=== PATIENT | female | born 1935 | race Caucasian/White ===

== ENCOUNTER 2018-07-14 23:22 | Observation (INO) | payer MEDICARE ==
[~2018-07-14] VITALS: Ht 165.1 cm; Wt 96.4 kg
[~2018-07-14 23:22] MED LIST: AMLODIPINE BESIL1 GM PO; ATENOLOL100 MG PO; LEVOTHYROXINE50 MCG PO; METFORMIN HCL500 MG PO; PRILOSEC20 MG PO; ULTRAM50 MG PO
[2018-07-14] MEDS ORDERED: HYDROMORPHONE 2MG/ML 2 MG/ML ML IV STA (23:25)
[2018-07-14] MEDS ORDERED: ONDANSETRON HCL INJ 2 MG/ML VIAL IV STA (23:25)
--- OUTSIDE RECORDS SUMMARY | 2018-07-14 23:25 | XMS REPORT | Clinical Summary ---
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 cement, namely polymethylmethacrylate (PMMA). Minimal contrast extended beyond the anterior margins of the vertebral body through the fracture plane, with no evidence of intravasation to any vessel. Trace contrast extended into the very inferior aspect of the T12-T 13 disc space through the fracture plane along the superior endplate of T 13. Proper cement distribution in the fractured T 13 vertebral body was achieved. The cannulas were then removed. POST-PROCEDURE: All incisions were closed with Steri-Strips and pressure dressing. The patient was kept in the prone position for approximately 10 minutes. The patient was then turned supine, monitored briefly and returned to the post-procedure monitoring unit. The patient was awake and moving all extremities and at this time showed no neurologic deficit. No complications were encountered. Blood loss was noted to be minimal. IMPRESSION: 1. Successful uncomplicated fluoroscopic-guided vertebroplasty of T 13 vertebral body. Fluoroscopy time was 3.2 minutes Total fluoroscopic exposure images was12 images. Total radiation exposure was 518 mGy. [facility]-[id number] Procedure Note Hm Interface, Radiology Results Incoming - 12/09/2017 4:38 PM CDT EXAMINATION: IR VERTEBRO LUM UNI OR DANE 1. FLUOROSCOPIC-GUIDED CEMENT AUGMENTATION AND INTERNAL FIXATION OF T 13 COMPRESSION FRACTURE WITH VERTEBROPLASTY. CLINICAL HISTORY: compression fracture, T13 compresion fracture- vertebroplasty please COMPARISON: CT thoracic spine 12/07/2017, CT lumbar spine 12/07/2017 CLINICAL HISTORY: Back pain. MRI shows acute compression fracture of T 13 level. PREOPERATIVE DIAGNOSIS: Osteoporotic compression fracture of T13 vertebral body with severe back pain. POSTOPERATIVE DIAGNOSIS: Same. BLOOD LOSS: Less than 2 cc COMPLICATIONS: None CONSENT: After discussion of the radiographic findings and the compression fracture of T13 vertebral body with patient and her family, we have decided to treat the compression fracture with Percutaneous vertebroplasty for fracture reduction and internal fixation. The patient and the members of the immediate family understood the risks and benefits of the procedure. Informed consent was obtained. PROCEDURE DESCRIPTION: The patient was brought to the Fluoroscopy Suite and placed on the fluoroscopy table in prone position. The procedure was performed under general anesthesia, which was conducted with an anesthesiologist. Prophylactic intravenous antibiotic 400 mg ciprofloxacin was given. The thoracolumbar region was prepped and draped in standard sterile fashion. The imaging intensifiers were placed in both AP and lateral fluoroscopic planes. Transpedicular approach was utilized to access the T13 vertebral compression fractures bilaterally. The skin over the pedicles of T13 level were infiltrated with 2% buffered lidocaine. Deep infiltration into the periosteum of T13 was achieved. A 13 gauge entry needle was placed into the posterior aspect of the body of T13 level bilaterally via transpedicular approach. Positioning was confirmed in both AP and lateral planes simultaneously. Following satisfactory placement of the needles, the Stylet was removed under fluoroscopic imaging, internal fixation was achieved through injection of bone cement, namely polymethylmethacrylate (PMMA). Minimal contrast extended beyond the anterior margins of the vertebral body through the fracture plane, with no evidence of intravasation to any vessel. Trace contrast extended into the very inferior aspect of the T12-T 13 disc space through the fracture plane along the superior endplate of T 13. Proper cement distribution in the fractured T 13 vertebral body was achieved. The cannulas were then removed. POST-PROCEDURE: All incisions were closed with Steri-Strips and pressure dressing. The patient was kept in the prone position for approximately 10 minutes. The patient was then turned supine, monitored briefly and returned to the post-procedure monitoring unit. The patient was awake and moving all extremities and at this time showed no neurologic deficit. No complications were encountered. Blood loss was noted to be minimal. IMPRESSION: 1. Successful uncomplicated fluoroscopic-guided vertebroplasty of T 13 vertebral body. Fluoroscopy time was 3.2 minutes Total fluoroscopic exposure images was12 images. Total radiation exposure was 518 mGy. [facility]-[id number] Performing Organization Address [facility] Phone Number [place] [phone] [place] [phone] * Total iron binding capacity (12/09/2017 4:06 AM CDT) Iron level 32 (L) 37 - 145 ug/dL [facility] DEPARTMENT OF PATHOLOGY AND GENOMIC MEDICINE Iron binding capacity 232 200 - 400 ug/dL [facility] DEPARTMENT OF PATHOLOGY AND GENOMIC MEDICINE % Saturation 13.8 (L) 15.0 - 38.0 % [facility] DEPARTMENT OF PATHOLOGY AND GENOMIC MEDICINE Specimen Plasma specimen Performing Organization Address [facility] Phone Number [address] [address] PATHOLOGY AND GENOMIC MEDICINE * Prothrombin time with INR (12/09/2017 4:06 AM CDT) Only the most recent of 2 results within the time period is included. Prothrombin time 13.9 12.0 - 15.0 sec [facility] DEPARTMENT OF PATHOLOGY AND GENOMIC MEDICINE INR 1.1 [facility] DEPARTMENT OF Comment: PATHOLOGY AND The International Normalized GENOMIC MEDICINE Ratio (INR) is a therapeutic monitoring tool for patients who are stable on oral anticoagulant therapy. An INR of 2.0-3.0 is suggested for deep vein thrombosis/pulmonary embolism. Specimen Blood Performing Organization Address [facility]/Zipcode Phone Number [place] [address] PATHOLOGY AND GENOMIC MEDICINE * Transferrin level (12/09/2017 4:06 AM CDT) Transferrin 206 200 - 360 mg/dL [facility] DEPARTMENT OF PATHOLOGY AND GENOMIC MEDICINE Specimen Plasma specimen Performing Organization Address City/[facility]/Zipcode Phone Number [facility] [place] [address] PATHOLOGY AND GENOMIC MEDICINE * Ferritin level (12/09/2017 4:06 AM CDT) Ferritin level 121 13 - 150 ng/mL [facility] DEPARTMENT OF PATHOLOGY AND GENOMIC MEDICINE Specimen Plasma specimen Performing Organization Address [facility] Phone Number [facility] [place] [address] PATHOLOGY AND GENOMIC MEDICINE * Type and screen (12/09/2017 4:00 AM CDT) ABO grouping O [facility] DEPARTMENT OF PATHOLOGY AND GENOMIC MEDICINE Rh type POS [facility] DEPARTMENT OF PATHOLOGY AND GENOMIC MEDICINE Antibody screen (gel) NEG [facility] DEPARTMENT OF PATHOLOGY AND GENOMIC MEDICINE Specimen Blood Performing Organization Address [facility] Phone Number [facility] [place] [address] PATHOLOGY AND GENOMIC MEDICINE * XR Abdomen 1 Vw Portable (12/08/2017 12:08 PM CDT) Narrative Performed At Examination:XR ABDOMEN 1 VW PORTABLE [facility] Clinical history:"ABDOMINAL PAIN, constipation" Comparison: None IMPRESSION:Only the left lateral abdomen is imaged on the left lateral decubitus views and only the right mid abdomen is imaged on the right lateral decubitus view. Bowel gas pattern is nonspecific. There is no evidence of acute disease within the imaged portions of both lung bases. The imaged bones appear to demonstrate hardware. Surgical clips are seen in the right upper quadrant. [facility]-[id number] Procedure Note Interface, Radiology Results Incoming - 12/08/2017 12:34 PM CDT Examination: XR ABDOMEN 1 VW PORTABLE Clinical history: "ABDOMINAL PAIN, constipation" Comparison: None IMPRESSION: Only the left lateral abdomen is imaged on the left lateral decubitus views and only the right mid abdomen is imaged on the right lateral decubitus view. Bowel gas pattern is nonspecific. There is no evidence of acute disease within the imaged portions of both lung bases. The imaged bones appear to demonstrate hardware. Surgical clips are seen in the right upper quadrant. [id number] Performing Organization Address [facility]/Zipcode Phone Number [facility] [address] [place] [address] * Vitamin D 25 hydroxy level (12/08/2017 4:00 AM CDT) Vitamin D, 25-hydroxy 21.7 (L) 30.0 - 150.0 ng/mL [facility] DEPARTMENT OF Comment: PATHOLOGY AND This assay reports the sum of GENOMIC MEDICINE 25-hydroxy vitamin D3 and 25-hydroxy vitamin D2. Reference range: 0-17 years: Deficiency: less than 20ng/mL Optimum level: greater than or equal to 20 ng/mL. 18 years and older: Deficiency: less than 20ng/mL Insufficiency: 20-29 ng/mL Optimum Level: 30-80 ng/mL The assay reportable range is 3.4155.9 ng/mL. Levels higher than 150 ng/mL may be associated with toxicity. If toxicity is clinically suspected and the reported result is >155.9 ng/mL,contact lab for alternative methods to obtain a definitivelevel. If separate quantitation of 25-hydroxy vitamin D3 and 25-hydroxy vitamin D2 is needed, please contact lab for alternative methods. Specimen Blood Performing Organization Address [facility] Phone Number [facility] DEPARTMENT OF [address] [place] [address] PATHOLOGY AND GENOMIC MEDICINE * CT Thoracic Spine Wo Contrast (12/07/2017 6:55 PM CDT) Narrative Performed At EXAMINATION: CT THORACIC SPINE WO CONTRAST [facility] CLINICAL HISTORY: point tenderness along T-spine COMPARISON:Outside CT lumbar spine 12/06/2017. TECHNIQUE: Non contrast axial images of the thoracic spine were obtained with coronal and sagittal reconstructed algorithms.CT imaging was performed with iterative reconstruction technique and/or automated exposure control to reduce radiation dose. FINDINGS: Of note, there are 13 rib-bearing vertebrae. Stable mild acute compression fracture of the lowest rib-bearing vertebral body with approximately 25% vertebral height loss and minimal retropulsion of the superior endplate without significant spinal canal narrowing. No suspicious osseous lesion identified. No additional fracture identified. Remaining for vertebral heights appear maintained. Minimal anterior osteophyte from aeration of multiple thoracic levels. Diffuse osteopenia. Patent spinal canal and neural foramina at all thoracic levels. Arteriosclerosis of the thoracic and visualized abdominal aorta. IMPRESSION: Of note, there are 13 rib-bearing vertebrae. Stable mild acute compression fracture of the lowest rib-bearing vertebral body with approximately 25% vertebral height loss and minimal retropulsion of the superior endplate without significant spinal canal narrowing. [facility]-[id number] Procedure Note [facility], Radiology Results Incoming - 12/07/2017 7:16 PM CDT EXAMINATION: CT THORACIC SPINE WO CONTRAST CLINICAL HISTORY: point tenderness along T-spine COMPARISON: Outside CT lumbar spine 12/06/2017. TECHNIQUE: Non contrast axial images of the thoracic spine were obtained with coronal and sagittal reconstructed algorithms. CT imaging was performed with iterative reconstruction technique and/or automated exposure control to reduce radiation dose. FINDINGS: Of note, there are 13 rib-bearing vertebrae. Stable mild acute compression fracture of the lowest rib-bearing vertebral body with approximately 25% vertebral height loss and minimal retropulsion of the superior endplate without significant spinal canal narrowing. No suspicious osseous lesion identified. No additional fracture identified. Remaining for vertebral heights appear maintained. Minimal anterior osteophyte from aeration of multiple thoracic levels. Diffuse osteopenia. Patent spinal canal and neural foramina at all thoracic levels. Arteriosclerosis of the thoracic and visualized abdominal aorta. IMPRESSION: Of note, there are 13 rib-bearing vertebrae. Stable mild acute compression fracture of the lowest rib-bearing vertebral body with approximately 25% vertebral height loss and minimal retropulsion of the superior endplate without significant spinal canal narrowing. [facility]-[id number] Performing Organization Address City/State/Zipcode Phone Number [facility] [address] [place] [address] * POC glucose (12/07/2017 7:58 AM CDT) POC glucose 124 (H) 65 - 99 mg/dL [facility] DEPARTMENT OF Comment: PATHOLOGY AND No Action Needed GENOMIC MEDICINE [facility] Notified RN Meter ID: [id number] Reject Opener And Filler: Mik Le Performing Organization Address City/State/[place] [address] PATHOLOGY AND GENOMIC MEDICINE * ECG 12 lead (12/07/2017 2:17 AM CDT) Ventricular rate 66 [facility] MUSE Atrial rate 66 [facility] MUSE PA interval 188 [facility] QRSD interval 82 [facility] QT interval 436 [facility] QTC interval 457 [facility] MUSE P axis 1 60 [facility] MUSE QRS axis 1 30 [facility] MUSE T wave axis 57 [facility] MUSE EKG impression Normal sinus rhythm-Possible [facility] MUSE Lateral infarct , age undetermined-Abnormal ECG-No previous ECGs available- Performing Organization Address [facility] Hospitalc[place] [address] * Troponin (12/07/2017 12:49 AM CDT) Troponin <0.30 0.00 - 0.30 ng/mL [facility] DEPARTMENT OF Comment: PATHOLOGY AND 0.30 - 1.49 GENOMIC MEDICINE ng/mlMay indicate increased risk of acute coronary syndrome. >=1.5 ng/ml Consistent with acute myocardial infarction. The diagnostic value of a single normal or non-diagnostic result is questionable.Serial samples at 2-6 hour intervals are required to rule out acute myocardial injury. Specimen Plasma specimen Performing Organization Address [facility] [place] [address] PATHOLOGY AND GENOMIC MEDICINE * Partial thromboplastin time, activated (12/07/2017 12:49 AM CDT) PTT 32.4 23.0 - 36.0 sec [facility] DEPARTMENT OF Comment: PATHOLOGY AND PTT therapeutic range for [facility] MEDICINE unfractionated heparin is 61.0-112.0 seconds which corresponds to Anti-Xa 0.3-0.7 U/ml. Specimen Blood Performing Organization Address [facility] [place] [address] PATHOLOGY AND GENOMIC MEDICINE * Thyroid stimulating hormone (12/07/2017 12:49 AM CDT) TSH 4.18 0.27 - 4.20 uIU/mL [facility] DEPARTMENT OF PATHOLOGY AND GENOMIC MEDICINE Specimen Plasma specimen Performing Organization Address [facility] Phone Number [facility] DEPARTMENT OF [address] [place] [address] PATHOLOGY AND GENOMIC MEDICINE * T4, free (12/07/2017 12:49 AM CDT) T4, free 1.4 0.9 - 1.7 ng/dL [facility] DEPARTMENT OF PATHOLOGY AND GENOMIC MEDICINE Specimen Plasma specimen Performing Organization Address City/[facility] [place] [address] PATHOLOGY AND GENOMIC MEDICINE * B natriuretic peptide (12/07/2017 12:49 AM CDT) BNP 52 0 - 100 pg/mL [facility] DEPARTMENT OF PATHOLOGY AND GENOMIC MEDICINE Specimen Blood Performing Organization Address [facility] [place] [address] PATHOLOGY AND GENOMIC MEDICINE * Lipid panel (12/07/2017 12:49 AM CDT) Cholesterol 190 <200 mg/dL [facility] DEPARTMENT OF PATHOLOGY AND GENOMIC MEDICINE Triglycerides 257 (H) <150 mg/dL [facility] DEPARTMENT OF PATHOLOGY AND GENOMIC MEDICINE HDL cholesterol 39 (L) >40 mg/dL [facility] DEPARTMENT OF PATHOLOGY AND GENOMIC MEDICINE LDL cholesterol 119 (H)Comment: Result <100 mg/dL [facility] DEPARTMENT OF obtained by direct LDL PATHOLOGY AND measurement GENOMIC MEDICINE Lipid panel SeeBelow [facility] DEPARTMENT OF interpretation Comment: PATHOLOGY AND Total Cholesterol GENOMIC MEDICINE (mg/dL) <200 Desirable 200-239Borderline -high >=240High Triglycerides (mg/dL) <150 Normal 150-199Borderline -high 200-499High >=500Very high HDL Cholesterol (mg/dL) <40Low (male) <40Low (female) LDL Cholesterol (mg/dL) <100 Optimal 100-129Near or above optimal 130-159Borderline -high 160-189High >=190Very high Risk Catergories that modify LDL goals. Risk Catergories LDL goal (mg/dL) CHD and CHD risk equivalent<100 (10-year risk >20%) Multiple (2+) risk factors <130 (10-year risk=<20%) 0-1 risk factors <160 (<10-year risk) Defining levels of lipids in metabolic syndrome Triglycerides >=150 mg/dL HDL Cholesterol Men <40 mg/dL Women <40 mg/dL Non-HDL cholesterol is a second target for therapy in persons with high triglycerides (>=200 mg/dL) Specimen Plasma specimen Performing Organization Address City/[facility]/Zipcode Phone Number [facility] DEPARTMENT OF [address] [place] [address] PATHOLOGY AND GENOMIC MEDICINE * CT Spine External Study (12/06/2017 1:42 PM CDT) Narrative Performed At This exam was not acquired at a [facility] facility and has not been [facility] interpreted by a [facility] Provider.The exam was imported into our imaging system for comparisons purposes. Performing Organization Address [facility] Phone Number [facility] [address] [place] [address] * XR Hip 2-3 View Left (12/02/2017 2:03 PM CDT) Narrative Performed At EXAMINATION:XR HIP 2-3 VIEWS LEFT [facility] CLINICAL HISTORY:pain post fall COMPARISON:None. TECHNIQUE: 3 views were performed consisting of an AP pelvis, AP and frog's view of the LEFT hip. FINDINGS: No gross acute fracturing, dislocation, bone destruction, or periosteal reaction is noted. No gross soft tissue swelling is noted.Minimal degenerative changes are present with some mild joint space narrowing. If the patient's symptoms persist or deteriorate, a follow-up radiograph in 10 days time is recommended, if clinically indicated. IMPRESSION: 1. There is no acute fracture or subluxation. 2. There are no osseous lesions present. 3. There are mild degenerative changes present consistent with osteoarthritis. [id number] Procedure Note Interface, Radiology Results Incoming - 12/02/2017 2:09 PM CDT EXAMINATION: XR HIP 2-3 VIEWS LEFT CLINICAL HISTORY: pain post fall COMPARISON: None. TECHNIQUE: 3 views were performed consisting of an AP pelvis, AP and frog's view of the LEFT hip. FINDINGS: No gross acute fracturing, dislocation, bone destruction, or periosteal reaction is noted. No gross soft tissue swelling is noted. Minimal degenerative changes are present with some mild joint space narrowing. If the patient's symptoms persist or deteriorate, a follow-up radiograph in 10 days time is recommended, if clinically indicated. IMPRESSION: 1. There is no acute fracture or subluxation. 2. There are no osseous lesions present. 3. There are mild degenerative changes present consistent with osteoarthritis. [id number] Performing Organization Address [facility] Phone Number [facility] [address] [place] [address] * XR Ribs W Pa Chest Left (12/02/2017 2:03 PM CDT) Narrative Performed At EXAMINATION:XR RIBS W PA CHEST LEFT HM [facility] CLINICAL HISTORY:paintrauma COMPARISON:None. IMPRESSION: 1.The bones are osteopenic. No rib fracture or focal osseous lesion is seen. Lumbar hardware is present. [id number] Procedure Note Hm Interface, Radiology Results Incoming - 12/02/2017 2:15 PM CDT EXAMINATION: XR RIBS W PA CHEST LEFT CLINICAL HISTORY: pain trauma COMPARISON: None. IMPRESSION: 1. The bones are osteopenic. No rib fracture or focal osseous lesion is seen. Lumbar hardware is present. [id number] Performing Organization Address City/[facility] Phone Number [facility] [address] [place] [address] after 07/13/2017 Insurance Payer Benefit Subscriber ID Type Phone Address Plan / Group [facility] [employer] xxxxxxxxxxx [facility] ([place]) [place] [address] Advance Directives Patient has advance care planning documents on file. For more information, darby lopes contact: [employer] [address] [place] [address]
[2018-07-14 23:46] LABS: BASOPHILS # (AUTO) 0.1 (0.0-0.1); BASOPHILS % 0.5 % (0.0-1.0); EOSINOPHILS # (AUTO) 0.4 (0.0-0.4); EOSINOPHILS % 2.9 % (0.0-6.0); HEMATOCRIT 41.3 % (34.2-44.1); HEMOGLOBIN 14.2 g/dL (12.0-16.0); LYMPHOCYTES # (AUTO) 3.4 (1.0-3.2); LYMPHOCYTES % 25.5 % (18.0-39.1); MEAN CORPUSCULAR HEMOGLOBIN 29.8 pg (28-32); MEAN CORPUSCULAR HGB CONC 34.4 g/dL (31-35); MEAN CORPUSCULAR VOLUME 86.6 fL (81-99); MONOCYTES # (AUTO) 1.2 (0.2-0.8); MONOCYTES % 8.9 % (4.4-11.3); NEUTROPHILS # (AUTO) 8.1 (2.1-6.9); NEUTROPHILS % 61.4 % (38.7-80.0); PLATELET COUNT 244 x10e3/uL (140-360); RED BLOOD COUNT 4.77 x10e6/uL (3.6-5.1); RED CELL DISTRIBUTION WIDTH 13.3 % (11.7-14.4)
[2018-07-14 23:54] LABS: CLARITY,URINE SL CLOUDY (CLEAR); COLOR,URINE YELLOW (YELLOW)
[2018-07-14 23:55] LABS: BILIRUBIN,URINE NEGATIVE (NEGATIVE); KETONES,URINE TRACE (NEGATIVE); LEUKOCYTE ESTERASE ,URINE TRACE (NEGATIVE); NITRITE,URINE NEGATIVE (NEGATIVE); PROTEIN,URINE DIPSTICK TRACE (NEGATIVE); URINE UROBILINOGEN 0.2 mg/dL (0.2 - 1)
[2018-07-15] VITALS (8 sets, daily range): BP systolic 112–150; BP diastolic 55–66
[2018-07-15 00:08] LABS: ALANINE AMINOTRANSFERASE 30 IU/L (0-55); ALBUMIN 4.1 g/dL (3.5-5.0); ALKALINE PHOSPHATASE 84 IU/L (40-150); ANION GAP 19.1 mmol/L (8-16); BLOOD UREA NITROGEN 19 mg/dL (7-26); BUN/CREATININE RATIO 23 (6-25); CALCIUM 9.8 mg/dL (8.4-10.2); CARBON DIOXIDE 20 mmol/L (22-29); CHLORIDE 103 mmol/L (98-107); CREATININE, SERUM 0.83 mg/dL (0.57-1.11); EST GLOMERULAR FILTRATION RATE > 60 ML/MIN (60-); GLUCOSE 164 mg/dL (74-118); POTASSIUM 4.1 mmol/L (3.5-5.1); SODIUM 138 mmol/L (136-145)
[2018-07-15 00:14] LABS: BACTERIA,URINE RARE /HPF; TRANSITIONAL EPI CELLS,URINE FEW
[2018-07-15 00:15] LABS: EPITHELIAL CELLS,URINE MODERATE /LPF
--- NOTE | 2018-07-15 00:38 | Diagnostic Imaging Report ---
EXAM: CT ABDOMEN/PELVIS WO DATE: 07/14/2018 11:25 PM INDICATION: Abdominal pain, stone protocol, left flank COMPARISON: None TECHNIQUE: The abdomen and pelvis were scanned using a multidetector helical scanner. Coronal and sagittal reformations were obtained. CT low dose techniques were utilized, as applicable. IV Contrast: 0 ml Isovue 300/370 FINDINGS: Lack of IV contrast decreases sensitivity in evaluating abdominal and pelvic organs. LOWER THORAX: No consolidations LIVER/BILIARY: 2.9 cm left liver fluid attenuation lesion most compatible with a cyst. Mild biliary ductal dilation status post cholecystectomy. GALLBLADDER: Surgically absent SPLEEN: Unremarkable PANCREAS: No masses or ductal dilation ADRENALS: No nodules KIDNEYS: Bilateral nephrolithiasis, the largest measuring 6 mm of the right lower pole and 4 to 5 mm of the left lower pole. Mild left hydroureteronephrosis related to a 6 mm stone at the left UVJ versus two adjacent 3 mm stones. GI TRACT: No wall thickening or evidence of obstruction. Normal appendix. Diverticulosis. VESSELS: Mild atherosclerotic calcification PERITONEUM/RETROPERITONEUM: No free air or fluid LYMPH NODES: No lymphadenopathy REPRODUCTIVE ORGANS/BLADDER: Bladder is decompressed. Hysterectomy. BONES: Postsurgical changes status post kyphoplasty at T12 compression fracture, L3-4 posterior fusion and decompression with grade 1 anterolisthesis of L3 over L4. IMPRESSION: Mild left hydroureteronephrosis related to a 6 mm left UVJ stone versus two adjacent 3 mm stones. Bilateral nonobstructing renal calculi. Signed by: Dr Vanessa Summers MD on 07/15/2018 12:35 AM
[2018-07-15] MEDS ORDERED: HYDROMORPHONE 1MG/1ML INJ IV STA (00:41)
[2018-07-15] MEDS ORDERED: FLOMAX0.4 MG PO (00:48)
[2018-07-15] MEDS ORDERED: GABAPENTIN100 MG PO (00:48)
[2018-07-15] MEDS ORDERED: HYDROMORPHONE 2MG/ML 2 MG/ML ML ONE (00:52)
[2018-07-15] MEDS ORDERED: HYDRALAZINE HCL 20 MG/ML VIAL IV PRN (01:45)
[2018-07-15] MEDS ORDERED: HYDROMORPHONE 1MG/1ML INJ IV PRN (01:45)
[2018-07-15] MEDS ORDERED: SODIUM CHLORIDE 0.9% 50ML 50 ML ONE (01:52)
[2018-07-15] MEDS: SODIUM CHLORIDE 0.9% 1000ML 1,000 ML IV SCH ×3 (02:04→16:14)
[2018-07-15] MEDS: CEFTRIAXONE SOD 1 GM VIAL IV SCH (02:04)
[2018-07-15] MEDS ORDERED: KETOROLAC TROMETHAMINE 30 MG/ML VIAL IV ONE (02:15)
--- OUTSIDE RECORDS SUMMARY | 2018-07-15 02:32 | XMS REPORT ---
Author Author [facility] Address Unknown Phone Unavailable Care Team Providers Care Canal Tender Name Role Phone Franchesca MATTHEW Unavailable Unavailable Problems This patient has no known problems. Allergies, Adverse Reactions, Alerts This patient has no known allergies or adverse reactions. Medications This patient has no known medications. Results Test Description Test Time Test Comments Text Results Atomic Results Result Comments CT ABDOMEN/PELVIS WO 2018-07-15 00:25:00 [place] [address] Patient Name: OSCAR PARIS MR #: [id number] : 1935 Age/Sex: 83/F Req #: [id number] Adm Physician: Ordered by: EMILIANO MATTHEW MD Report #: [id number] Location: ER Room/Bed: Procedure: [id number] CT/CT ABDOMEN/PELVIS WO Exam Date: 07/14/18 Exam Time: 2353 REPORT STATUS: Signed EXAM: CT ABDOMEN/PELVIS WO DATE: 07/14/2018 11:25 PM INDICATION: Abdominal pain, stone protocol, left flank COMPARISON: None TECHNIQUE: The abdomen and pelvis were scanned using a multidetector helical scanner. Coronal and sagittal reformations were obtained. CT low dose techniques were utilized, as applicable. IV Contrast: 0 ml Isovue 300/370 FINDINGS: Lack of IV contrast decreases sensitivity in evaluating abdominal and pelvic organs. LOWER THORAX: No consolidations LIVER/BILIARY: 2.9 cm left liver fluid attenuation lesion most compatible with a cyst. Mild biliary ductal dilation status post cholecystectomy. GALLBLADDER: Surgically absent SPLEEN: Unremarkable PANCREAS: No masses or ductal dilation ADRENALS: No nodules KIDNEYS: Bilateral nephrolithiasis, the largest measuring 6 mm of the right lower pole and 4 to 5 mm of the left lower pole. Mild left hydroureteronephrosis related to a 6 mm stone at the left UVJ versus two adjacent 3 mm stones. GI TRACT: No wall thickening or e vidence of obstruction. Normal appendix. Diverticulosis. VESSELS: Mild atherosclerotic calcification PERITONEUM/RETROPERITONEUM: No free air or fluid LYMPH NODES: No lymphadenopathy REPRODUCTIVE ORGANS/BLADDER: Bladder is decompressed. Hysterectomy. BONES: Postsurgical changes status post kyphoplasty at T12 compression fracture, L3-4 posterior fusion and decompression with grade 1 anterolisthesis of L3 over L4. IMPRESSION: Mild left hydroureteronephrosis related to a 6 mm left UVJ stone versus two adjacent 3 mm stones. Bilateral nonobstructing renal calculi. Signed by: Dr Prince Summers MD on 07/15/2018 12:35 AM Dictated By: PRINCE SUMMERS MD Transcribed By: DEANNE on 07/15/1834 COPY TO: EMILIANO MATTHEW MD
--- OUTSIDE RECORDS SUMMARY | 2018-07-15 02:32 | XMS REPORT | Clinical Summary ---
Author Author [facility] Organization [facility] Address Unknown Phone Unavailable Care Team Providers Care Developer Prover Upholstering Name Role Phone Rony Gonzalez MD PCP [...] Encounters Care Team Description Date Type Specialty aMc Lockett MD Abdominal pain, acute, generalized (Primary [...] initial encounter 12/02/2017 Emergency Emergency Medicine after 07/14/2017 Social History Date Tobacco Use Types Packs/Day [...] Taken Vital Sign Reading 07/07/2018 2:57 AM OCEAN EXPORT COORDINATOR Blood Pressure 146/63 07/07/2018 2:57 AM OCEAN EXPORT COORDINATOR Pulse 89 07/06/2018 10:46 PM OCEAN EXPORT COORDINATOR Temperature 36.9 C (98.4 F) 07/07/2018 2:57 AM OCEAN EXPORT COORDINATOR Respiratory Rate 19 07/07/2018 2:57 AM OCEAN EXPORT COORDINATOR Oxygen Saturation 98% - Inhaled Oxygen - Concentration 07/07/2018 2:57 AM OCEAN EXPORT COORDINATOR Weight 91.6 kg (201 lb 15.1 oz) 07/07/2018 2:57 AM OCEAN EXPORT COORDINATOR Height 165.1 cm (5' 5") 07/07/2018 2:57 AM OCEAN EXPORT COORDINATOR Body Mass Index 33.6 Plan of Treatment [...] Lot Implanted Type Area Manufactur er 09/08/2019 [id number] / / [id number] Kit Cmnt Spinal Hiviscocty 11ml Spinal N/A: N/A DEPUY [employer] - [id number] Implants SPINE Implanted: 12/10/2017 (Quantity not on file) Procedures Comments Procedure Name Priority Date/Time Associated Diagnosis URINALYSIS SCREEN AND STAT 07/07/2018 MICROSCOPY, WITH REFLEX 2:18 AM OCEAN EXPORT COORDINATOR TO CULTURE CT ABDOMEN PELVIS W STAT 07/07/2018 CONTRAST 2:08 AM OCEAN EXPORT COORDINATOR ESTIMATED GFR STAT 07/06/2018 11:46 PM OCEAN EXPORT COORDINATOR LIPASE LEVEL STAT 07/06/2018 11:46 PM OCEAN EXPORT COORDINATOR COMPREHENSIVE METABOLIC STAT 07/06/2018 PANEL 11:46 PM OCEAN EXPORT COORDINATOR HC COMPLETE BLD COUNT STAT 07/06/2018 W/AUTO DIFF 11:46 PM OCEAN EXPORT COORDINATOR GRAM STAIN STAT 07/06/2018 10:48 PM OCEAN EXPORT COORDINATOR URINE CULTURE STAT 07/06/2018 10:48 PM OCEAN EXPORT COORDINATOR ZZESTIMATED GFR Routine 12/10/2017 4:20 AM CDT [...] STAT 12/02/2017 PANEL 12:45 PM CDT after 07/14/2017 Results * Urinalysis screen and microscopy, with reflex to culture (07/07/2018 2:18 AM OCEAN EXPORT COORDINATOR) Specimen site Clean catch [facility] Color, UA Yellow [facility] Appearance, UA Clear [facility] Specific gravity, UA 1.035 1.001 - 1.035 [facility] pH, UA 5.0 5.0 - 8.5 [facility] Protein, UA 2+ (A) Negative [facility] Glucose, UA Negative Negative [facility] Ketones, UA Trace (A) Negative [facility] Bilirubin, UA Negative Negative [facility] Blood, UA Large (A) Negative [facility] Nitrite, UA Negative Negative [facility] Urobilinogen, UA <2.0 <2.0 [facility] Leukocyte esterase, UA Small (A) Negative [facility] Epithelial cells, UA 4 /HPF [facility] WBC, UA 2 0 - 4 /HPF [facility] RBC, UA 54 (H) 0 - 5 /HPF [facility] Bacteria, UA None seen None seen [facility] Yeast, UA None seen [facility] Yeast with pseudohyphae, None seen [facility] Specimen Urine Performing Organization Address City/State/Zipcode Phone Number [facility] DEPARTMENT OF [address] [place] [address] PATHOLOGY AND GENOMIC MEDICINE [facility] [address] [place] [address] [address] * CT Abdomen Pelvis W Contrast (07/07/2018 2:08 AM OCEAN EXPORT COORDINATOR) Narrative Performed At CT ABDOMEN PELVIS W [...] edema, and absence of a delayed nephrogram. [facility]-[id number] Procedure Note [facility], Radiology Results Incoming - 07/07/2018 2:18 AM OCEAN EXPORT COORDINATOR CT ABDOMEN PELVIS W CONTRAST CLINICAL INDICATION: [...] edema, and absence of a delayed nephrogram. [facility]-[id number] Performing Organization Address City/State/Zipcode Phone Number [facility] [address] [place] [address] * Estimated GFR (07/06/2018 11:46 PM OCEAN EXPORT COORDINATOR) Estimated GFR 55 (A) mL/min/1.73 m2 [facility] Comment: HOSPITAL CatergoryUnitsInte rpretation G1 >=90 Normal or high G2 60-89Mildly decreased P3d31-00 Mildly to moderately decreased Y5t14-28 Moderately to severely decreased G4 15-29Severely decreased G5 <15Kidney failure The eGFR was calculated using the Chronic Kidney Disease Epidemiology Collaboration (CKD-EPI) equation. Interpretation is based on recommendations of the National Kidney Foundation-Kidney Disease Outcomes Quality Initiative (NKF-KDOQI) published in 2014. Specimen Plasma specimen Performing Organization Address [facility] Cent[facility]ode Phone Number [facility] DEPARTMENT OF [address] [place] [address] PATHOLOGY AND GENOMIC MEDICINE [address] * CBC with platelet and differential (07/06/2018 11:46 PM OCEAN EXPORT COORDINATOR) Only the most recent of 6 results within the time period is included. WBC 14.30 (H) 4.50 - 11.00 k/uL [facility] RBC 4.57 4.20 - 5.50 m/uL [facility] HGB 13.5 12.0 - 16.0 g/dL [facility] HCT 39.3 37.0 - 47.0 % [facility] MCV 86.0 82.0 - 100.0 fL [facility] MCH 29.5 27.0 - 34.0 pg [facility] MCHC 34.4 31.0 - 37.0 g/dL [facility] RDW - SD 42.1 37.0 - 55.0 fL [facility] MPV 10.8 8.8 - 13.2 fL [facility] Platelet count 202 150 - 400 k/uL [facility] Nucleated RBC 0.00 /100 WBC [facility] Neutrophils 69.6 (H) 39.0 - 69.0 % [facility] Lymphocytes 18.8 (L) 25.0 - 45.0 % [facility] Monocytes 10.0 0.0 - 10.0 % [facility] Eosinophils 0.6 0.0 - 5.0 % [facility] Basophils 0.4 0.0 - 1.0 % [facility] Immature granulocytes 0.6Comment: "Immature 0.0 - 1.0 % [facility] granulocytes" (promyelocytes, HOSPITAL myelocytes, metamyelocytes) Specimen Blood Performing Organization Address [facility] Centercode Phone Number [facility] DEPARTMENT OF [address] [place] [address] PATHOLOGY AND GENOMIC MEDICINE [address] * Lipase level (07/06/2018 11:46 PM OCEAN EXPORT COORDINATOR) Lipase 10 (L) 13 - 60 U/L [facility] Specimen Plasma specimen Performing Organization Address City/[facility]/Zipcode Phone Number [facility] DEPARTMENT OF [address] [place] [address] PATHOLOGY AND GENOMIC MEDICINE [address] * Comprehensive metabolic panel (07/06/2018 11:46 PM OCEAN EXPORT COORDINATOR) Only the most recent of 3 results within the time period is included. Sodium 141 135 - 148 mEq/L [facility] Potassium 3.8 3.5 - 5.0 mEq/L [facility] Chloride 103 98 - 112 mEq/L [facility] CO2 21 (L) 24 - 31 mEq/L [facility] Anion gap 17@ANIO (H) 7 - 15 mEq/L [facility] BUN 13 8 - 23 mg/dL [facility] Creatinine 0.95 (H) 0.50 - 0.90 mg/dL [facility] Glucose 156 (H) 65 - 99 mg/dL [facility] Calcium 9.6 8.8 - 10.2 mg/dL [facility] Protein 7.8 6.3 - 8.3 g/dL [facility] Comment: HOSPITAL [place] 4.6-7.0 g/dL 1 week 4.4-7.6 g/dL 7 months-1year 5.1-7.3 g/dL 1-2 years5.6-7 .5 g/dL >3 years6.0-8 .0 g/dL 18-150 6.3-8.3 g/dL Albumin 3.9 3.5 - 5.0 g/dL [facility] A/G ratio 1.0 0.7 - 3.8 [facility] Alkaline phosphatase 79 35 - 104 U/L [facility] AST 33 10 - 35 U/L [facility] ALT 23 5 - 50 U/L [facility] Total bilirubin 0.9 0.0 - 1.2 mg/dL [facility] Specimen Plasma specimen Performing Organization Address City/State/Zipcode Phone Number [facility] DEPARTMENT OF [address] [place] [address] PATHOLOGY AND GENOMIC MEDICINE [address] * Gram stain (07/06/2018 10:48 PM OCEAN EXPORT COORDINATOR) Gram stain result Few WBC's [facility] Few Gram positive rods HOSPITAL Comment: Specimen Information Specimen Source: Urine Specimen Site: Clean catch Specimen Urine Performing Organization Address [facility] Centercode Phone Number [facility] [place] [address] PATHOLOGY AND GENOMIC MEDICINE [facility] * Urine culture (07/06/2018 10:48 PM OCEAN EXPORT COORDINATOR) Urine culture isolate Mixed asad 10-5 col/cc [facility] Comment: HOSPITAL Specimen Information Specimen Source: Urine Specimen Site: Clean catch Specimen Urine Performing Organization Address [facility] Centercode Phone Number [facility] [place] [address] PATHOLOGY AND GENOMIC MEDICINE [address] * Estimated GFR (12/10/2017 4:20 AM CDT) Only the most recent of 5 results within the time period is included. GFR Non Af Amer 60 mL/min/1.73 m2 [facility] DEPARTMENT OF PATHOLOGY AND GENOMIC MEDICINE GFR Af Amer 72 mL/min/1.73 m2 [facility] DEPARTMENT OF Comment: PATHOLOGY [...] Americans. Specimen Plasma specimen Performing Organization Address [facility] Centercode Phone Number [facility] [place] [address] PATHOLOGY AND [employer] MEDICINE * Phosphorus level (12/10/2017 4:20 AM CDT) Only the most recent of 3 results within the time period is included. Phosphorus 2.8 2.4 - 4.5 mg/dL [facility] DEPARTMENT OF PATHOLOGY AND GENOMIC MEDICINE Specimen Plasma specimen Performing Organization Address City/[facility]/Zipcode Phone Number [facility] [place] [address] PATHOLOGY AND GENOMIC MEDICINE * Magnesium level (12/10/2017 4:20 AM CDT) Only the most recent of 3 results within the time period is included. Magnesium 1.9 1.6 - 2.4 mg/dL [facility] DEPARTMENT OF PATHOLOGY AND GENOMIC MEDICINE Specimen Plasma specimen Performing Organization Address City/[facility] [place] [address] [facility] * Hemoglobin A1c (12/10/2017 4:20 AM CDT) Hemoglobin A1C 5.6 4.0 - 5.6 % [facility] DEPARTMENT OF Comment: PATHOLOGY AND HbA1c cutoffs for diagnosing [facility] diabetes: 4.0% - 5.6%=normal 5.7% - 6.4%=increased risk for diabetes (prediabetes) >=6.5%=diabetes Goals for glycemic control (ADA 2016) < 7.0%Target for non adults with diabetes. More or less stringent targets may be appropriate for individual patients. <7.5% Target for Children and adolescents with type 1 diabetes. Specimen Blood Performing Organization Address [facility] [place] [address] PATHOLOGY [facility] SYSTEM * Basic metabolic panel (12/10/2017 4:20 AM CDT) Only the most recent of 3 results within the time period is included. Sodium 139 135 - 148 mEq/L [facility] DEPARTMENT OF PATHOLOGY AND GENOMIC MEDICINE Potassium 4.3 3.5 - 5.0 mEq/L [facility] DEPARTMENT OF PATHOLOGY AND GENOMIC MEDICINE Chloride 102 98 - 112 mEq/L [facility] DEPARTMENT OF PATHOLOGY AND GENOMIC MEDICINE CO2 28 24 - 31 mEq/L [facility] DEPARTMENT OF PATHOLOGY AND GENOMIC MEDICINE Anion gap 9 7 - 15 mEq/L [facility] DEPARTMENT OF Comment: PATHOLOGY AND Starting from November [facility] , anion gap calculation no longer incorporates potassium. Please note the change. BUN 12 8 - 23 mg/dL [facility] DEPARTMENT OF PATHOLOGY AND GENOMIC MEDICINE Creatinine 0.9 0.5 - 0.9 mg/dL [facility] DEPARTMENT OF PATHOLOGY AND GENOMIC MEDICINE Glucose 187 (H) 65 - 99 mg/dL [facility] DEPARTMENT OF PATHOLOGY AND GENOMIC MEDICINE Calcium 8.5 (L) 8.8 - 10.2 mg/dL [facility] DEPARTMENT OF PATHOLOGY AND [employer] MEDICINE Specimen Plasma specimen Performing Organization Address City/[facility] Centercode Phone Number [address] [address] PATHOLOGY AND GENOMIC MEDICINE * IR Vertebroplasty [...] was conducted with an anesthesiologist. Prophylactic intravenous gunujflsci552 mg ciprofloxacin was given. The thoracolumbar region [...] images. Total radiation exposure was 518 mGy. [facility]-[id number] Procedure Note Hm Interface, Radiology Results Incoming [...] images. Total radiation exposure was 518 mGy. [facility]-[id number] Performing Organization Address [facility] Phone Number [place] [phone] [place] [phone] * Total iron binding capacity (12/09/2017 4:06 AM CDT) Iron level 32 (L) 37 - 145 ug/dL [facility] DEPARTMENT OF PATHOLOGY AND GENOMIC MEDICINE Iron binding capacity 232 200 - 400 ug/dL [facility] DEPARTMENT OF PATHOLOGY AND GENOMIC MEDICINE % Saturation 13.8 (L) 15.0 - 38.0 % [facility] DEPARTMENT OF PATHOLOGY AND GENOMIC MEDICINE Specimen Plasma specimen Performing Organization Address [facility] Phone Number [address] [address] PATHOLOGY AND GENOMIC MEDICINE * Prothrombin time with INR (12/09/2017 4:06 AM CDT) Only the most recent of 2 results within the time period is included. Prothrombin time 13.9 12.0 - 15.0 sec [facility] DEPARTMENT OF PATHOLOGY AND GENOMIC MEDICINE INR 1.1 [facility] DEPARTMENT OF Comment: PATHOLOGY AND The International Normalized GENOMIC MEDICINE Ratio (INR) is a therapeutic monitoring tool for patients who are stable on oral anticoagulant therapy. An INR of 2.0-3.0 is suggested for deep vein thrombosis/pulmonary embolism. Specimen Blood Performing Organization Address [facility]/Zipcode Phone Number [place] [address] PATHOLOGY AND GENOMIC MEDICINE * Transferrin level (12/09/2017 4:06 AM CDT) Transferrin 206 200 - 360 mg/dL [facility] DEPARTMENT OF PATHOLOGY AND GENOMIC MEDICINE Specimen Plasma specimen Performing Organization Address City/[facility]/Zipcode Phone Number [facility] [place] [address] PATHOLOGY AND GENOMIC MEDICINE * Ferritin level (12/09/2017 4:06 AM CDT) Ferritin level 121 13 - 150 ng/mL [facility] DEPARTMENT OF PATHOLOGY AND GENOMIC MEDICINE Specimen Plasma specimen Performing Organization Address [facility] Centercode Phone Number [facility] [place] [address] PATHOLOGY AND GENOMIC MEDICINE * Type and screen (12/09/2017 4:00 AM CDT) ABO grouping O [facility] DEPARTMENT OF PATHOLOGY AND GENOMIC MEDICINE Rh type POS [facility] DEPARTMENT OF PATHOLOGY AND GENOMIC MEDICINE Antibody screen (gel) NEG [facility] DEPARTMENT OF PATHOLOGY AND GENOMIC MEDICINE Specimen Blood Performing Organization Address [facility] Phone Number [facility] [place] [address] PATHOLOGY AND GENOMIC MEDICINE * XR Abdomen [...] are seen in the right upper quadrant. [facility]-[id number] Procedure Note Interface, Radiology Results Incoming - [...] are seen in the right upper quadrant. [facility]-[id number] Performing Organization Address [facility]/Zipcode Phone Number [facility] [address] [place] [address] * Vitamin D 25 hydroxy level (12/08/2017 4:00 AM CDT) Vitamin D, 25-hydroxy 21.7 (L) 30.0 - 150.0 ng/mL [facility] DEPARTMENT OF Comment: PATHOLOGY [...] alternative methods. Specimen Blood Performing Organization Address [facility] Centercode Phone Number [facility] DEPARTMENT OF [address] [place] [address] PATHOLOGY AND GENOMIC MEDICINE * CT Thoracic [...] superior endplate without significant spinal canal narrowing. [facility]-[id number] Procedure Note [facility], Radiology Results Incoming - 12/07/2017 7:16 [...] superior endplate without significant spinal canal narrowing. [facility]-[id number] Performing Organization Address City/State/Zipcode Phone Number [facility] [address] [place] [address] * POC glucose (12/07/2017 7:58 AM CDT) POC glucose 124 (H) 65 - 99 mg/dL [facility] DEPARTMENT OF Comment: PATHOLOGY AND No Action Needed GENOMIC MEDICINE [facility] Notified RN Meter ID: [id number] Home Sales Service Professional: Mik Le Performing Organization Address City/State/[place] [address] PATHOLOGY AND GENOMIC MEDICINE * ECG 12 lead (12/07/2017 2:17 AM CDT) Ventricular rate 66 [facility] MUSE Atrial rate 66 [facility] AK interval 188 [facility] QRSD interval 82 [facility] QT interval 436 [facility] QTC interval 457 [facility] MUSE P axis 1 60 [facility] QRS axis 1 30 [facility] MUSE T wave axis 57 [facility] MUSE EKG impression Normal sinus rhythm-Possible [facility] MUSE Lateral infarct , age undetermined-Abnormal ECG-No previous ECGs available- Performing Organization Address [facility] [place] [address] * Troponin (12/07/2017 12:49 AM CDT) Troponin <0.30 0.00 - 0.30 ng/mL [facility] DEPARTMENT OF Comment: PATHOLOGY AND 0.30 - 1.49 GENOMIC MEDICINE ng/mlMay indicate increased risk of acute coronary syndrome. >=1.5 ng/ml Consistent with acute myocardial infarction. The diagnostic value of a single normal or non-diagnostic result is questionable.Serial samples at 2-6 hour intervals are required to rule out acute myocardial injury. Specimen Plasma specimen Performing Organization Address [facility] [place] [address] PATHOLOGY AND GENOMIC MEDICINE * Partial thromboplastin time, activated (12/07/2017 12:49 AM CDT) PTT 32.4 23.0 - 36.0 sec [facility] DEPARTMENT OF Comment: PATHOLOGY AND PTT therapeutic range for [facility] MEDICINE unfractionated heparin is 61.0-112.0 seconds which corresponds to Anti-Xa 0.3-0.7 U/ml. Specimen Blood Performing Organization Address [facility] [place] [address] PATHOLOGY AND GENOMIC MEDICINE * Thyroid stimulating hormone (12/07/2017 12:49 AM CDT) TSH 4.18 0.27 - 4.20 uIU/mL [facility] DEPARTMENT OF PATHOLOGY AND GENOMIC MEDICINE Specimen Plasma specimen Performing Organization Address [facility] Centercode Phone Number [facility] DEPARTMENT OF [address] [place] [address] PATHOLOGY AND GENOMIC MEDICINE * T4, free (12/07/2017 12:49 AM CDT) T4, free 1.4 0.9 - 1.7 ng/dL [facility] DEPARTMENT OF PATHOLOGY AND GENOMIC MEDICINE Specimen Plasma specimen Performing Organization Address City/[facility] [place] [address] PATHOLOGY AND GENOMIC MEDICINE * B natriuretic peptide (12/07/2017 12:49 AM CDT) BNP 52 0 - 100 pg/mL [facility] DEPARTMENT OF PATHOLOGY AND GENOMIC MEDICINE Specimen Blood Performing Organization Address [facility] [place] [address] PATHOLOGY AND GENOMIC MEDICINE * Lipid panel (12/07/2017 12:49 AM CDT) Cholesterol 190 <200 mg/dL [facility] DEPARTMENT OF PATHOLOGY AND GENOMIC MEDICINE Triglycerides 257 (H) <150 mg/dL [facility] DEPARTMENT OF PATHOLOGY AND GENOMIC MEDICINE HDL cholesterol 39 (L) >40 mg/dL [facility] DEPARTMENT OF PATHOLOGY AND GENOMIC MEDICINE LDL cholesterol 119 (H)Comment: Result <100 mg/dL [facility] DEPARTMENT OF obtained by direct LDL PATHOLOGY AND measurement GENOMIC MEDICINE Lipid panel SeeBelow [facility] DEPARTMENT OF interpretation Comment: [...] mg/dL) Specimen Plasma specimen Performing Organization Address City/[facility]/Zipcode Phone Number [facility] DEPARTMENT OF [address] [place] [address] PATHOLOGY AND GENOMIC MEDICINE * CT Spine External Study (12/06/2017 1:42 PM CDT) Narrative Performed At This exam was not acquired at a [facility] facility and has not been [facility] interpreted by a [facility] Provider.The exam was imported into our imaging system for comparisons purposes. Performing Organization Address [facility] Centercode Phone Number [facility] [address] [place] [address] * XR Hip 2-3 View Left (12/02/2017 [...] mild degenerative changes present consistent with osteoarthritis. [id number] Procedure Note Interface, Radiology Results Incoming - [...] mild degenerative changes present consistent with osteoarthritis. [id number] Performing Organization Address [facility] Centercode Phone Number [facility] [address] [place] [address] * XR Ribs W Pa Chest Left (12/02/2017 2:03 PM CDT) Narrative Performed At EXAMINATION:XR RIBS W PA CHEST LEFT [facility] CLINICAL HISTORY:paintrauma COMPARISON:None. IMPRESSION: 1.The bones are osteopenic. No rib fracture or focal osseous lesion is seen. Lumbar hardware is present. [id number] Procedure Note Hm Interface, Radiology Results Incoming - 12/02/2017 2:15 PM CDT EXAMINATION: XR RIBS W PA CHEST LEFT CLINICAL HISTORY: pain trauma COMPARISON: None. IMPRESSION: 1. The bones are osteopenic. No rib fracture or focal osseous lesion is seen. Lumbar hardware is present. [facility]-[id number] Performing Organization Address City/[facility] Centercode Phone Number [facility] [address] [place] [address] after 07/14/2017 Insurance Payer Benefit Subscriber ID Type Phone Address Plan / Group [facility] [employer] xxxxxxxxxxx [facility] ([place]) [place] [address] Advance Directives Patient has advance care planning documents on file. For more information, darby lopes contact: [facility] [address] [place] [address]
[2018-07-15] MEDS: LEVOTHYROXINE SODIUM 50 MCG TAB PO SCH (05:05)
[2018-07-15] MEDS: HYDROMORPHONE 2MG/ML 2 MG/ML ML IV PRN (06:11)
[2018-07-15] MEDS: ONDANSETRON HCL INJ 2 MG/ML VIAL IV PRN (06:12)
[2018-07-15] MEDS ORDERED: TRAMADOL HCL 50 MG TAB PO PRN (06:45)
[2018-07-15] MEDS: FAMOTIDINE 20 MG TAB PO SCH ×2 (07:30→16:14)
[2018-07-15 07:33] LABS: CHOL/HDL RATIO 4.3 (3.0-3.6)
--- NOTE | 2018-07-15 08:03 | History and Physical ---
PRIMARY CARE PHYSICIAN: Dr. Rony Gonzalez CHIEF COMPLAINT: Flank pain. HISTORY OF PRESENT ILLNESS: This is an 83-year-old woman with a history of hypertension, now developing a left-sided flank pain radiating down to her groin. Patient had pain that started 1 week ago, went to [facility], told her that she had a urinary stone and now, she has had worsening symptoms that recurred with nausea and vomiting; therefore, she came to the hospital. Denies any fever. Here, she was found to have left-sided pyelonephritis and left hydroureteronephrosis. She was admitted for further evaluation and management. PAST MEDICAL HISTORY: Hypertension, obesity, hypothyroidism, diabetic neuropathy, diabetes mellitus, type 2. PAST SURGICAL HISTORY: Hysterectomy, low back surgery. ALLERGIES: PER ELECTRONIC MEDICAL RECORD. FAMILY/SOCIAL HISTORY: Patient is . No alcohol, illicits or cigarettes. MEDICATIONS: Per electronic medical record. REVIEW OF SYSTEMS: Denies any fever, chills, sweats. Denies any headache, vision changes. Denies any leg pain. Denies any shortness of breath or chest pain. PHYSICAL EXAM VITAL SIGNS: Reviewed. GENERAL: A tired-appearing woman resting in bed. HEENT: Anicteric. Pupils reactive to light. No oral lesions. CARDIOVASCULAR: Normal S1 and S2. LUNGS: Moderate breath sounds. ABDOMEN: Soft, nondistended. She has a left flank tenderness. She has abdominal discomfort on palpation. EXTREMITIES: No edema. SKIN: Dry. PSYCHIATRIC: Normal affect. NEUROLOGICAL: Alert and oriented x3. Moving all extremities. LABS: Reviewed. MEDICATIONS: Reviewed. ASSESSMENT AND PLAN: This is an 83-year-old woman with: 1. Acute left-sided pyelonephritis. 2. Urinary tract infection. 3. Left hydroureteronephrosis. 4. Left ureterolithiasis. 5. Nephrolithiasis, bilateral. 6. Hypertension. 7. Diabetes mellitus, type 2. 8. Hypothyroidism. 9. Obesity. 10. Metabolic acidosis. PLAN 1. IV fluids. 2. IV antibiotics. 3. Follow up cultures. 4. Obtain metabolic and lipid panel. 5. Urology consultation. 6. Continue home medication. 7. Rehydrate patient. 8. Use SCD for DVT prophylaxis and Pepcid for GI prophylaxis. 9. Follow up labs. Job#: [id number] CQ
[2018-07-15] MEDS: TAMSULOSIN HCL 0.4 MG CAP PO SCH (08:18)
[2018-07-15] MEDS: GABAPENTIN 100 MG CAP PO SCH ×2 (08:19→16:14)
[2018-07-15] MEDS: ATENOLOL 100 MG TAB PO SCH (08:19)
[2018-07-15] MEDS ORDERED: IOPAMIDOL 610MG/1ML 300 MG/ML VIAL IV ONE (09:11)
--- NOTE | 2018-07-15 13:20 | Operative Report ---
DATE OF PROCEDURE: July 15, 2018 PREOPERATIVE DIAGNOSES 1. Microscopic hematuria. 2. Left-sided hydronephrosis. POSTOPERATIVE DIAGNOSES 1. Microscopic hematuria. 2. Left-sided hydronephrosis. PROCEDURES 1. Cystourethroscopy with right ureteral catheterization and right retrograde pyelogram (separate procedure for diagnosis of microscopic hematuria). 2. Cystourethroscopy with insertion of left indwelling ureteral stent (entirely separate procedure for the diagnosis of left hydronephrosis). 3. Supervision of fluoroscopy. 4. Interpretation of retrograde pyelography. ANESTHESIA: General. ESTIMATED BLOOD LOSS: Minimal. COMPLICATIONS: None. INDICATIONS FOR PROCEDURE: Ms. Mcdaniels is a very pleasant, 83-year-old female admitted to the hospital with fevers, chills, nausea, and vomiting. Found to have an obstructing, 6 mm, distal ureteral calculus with proximal hydronephrosis. She and I had a long discussion regarding the alternatives, risks and benefits, including doing nothing, stent placement, percutaneous nephrostomy. She voiced an understanding of the options, the alternatives, and the risks and benefits and elected to proceed. PROCEDURE IN DETAIL: After informed consent was obtained, the patient was taken to the operative suite. She was placed supine on the operating table. She underwent general anesthesia by the anesthesia service. She was placed in the dorsal lithotomy position. She was sterilely prepped and draped in the standard fashion for cystoscopy. A 22.5-[place] cystoscope was inserted per urethra. A normal urethra was noted. Panendoscopy of the bladder revealed no tumors and no stones. Both ureteral orifices were in their normal anatomic location and position and were seen to efflux clear urine. Bilateral retrograde pyelograms were performed. The right was normal. The left revealed a 6-mm distal ureteral calculus with proximal hydronephrosis. Postoperative views on the left side revealed a stent in good position. The bladder was drained. The patient was awakened from anesthesia and transported to the recovery room in excellent condition. SUPERVISION OF FLUOROSCOPY AND INTERPRETATION OF RETROGRADE PYELOGRAPHY: I was present throughout the entire procedure and supervised the use of fluoroscopy. There was no radiologist present at any time during the procedure. Attention was turned toward the left and right ureteral orifices, which were catheterized. Retrograde pyelogram was performed revealing delicate ureter and delicate pelvicaliceal system on the right. There was hydronephrosis on the left and a distal 6-mm ureteral calculus with proximal hydronephrosis. A stent was deployed with a coil in the renal pelvis and a coil in the bladder. IMPRESSION 1. Left 6-mm distal ureteral calculus with hydronephrosis. 2. Left ureteral stent in adequate position. 3. Normal right retrograde pyelogram. Job#: [id number]
--- NOTE | 2018-07-15 13:32 | Consultation ---
DATE OF CONSULTATION: July 15, 2018 UROLOGY CONSULTATION REFERRING PHYSICIAN: Consultation is called by emergency room. CHIEF COMPLAINT AND REASON FOR CONSULTATION: Left renal calculus. HISTORY OF PRESENT ILLNESS: Mrs. Mcdaniels is an 83-year-old female admitted to the hospital with fevers, chills, nausea, vomiting, left-sided flank pain. She reports dysuria, question gross hematuria. PAST MEDICAL HISTORY: Notable for hypertension, back pain, a stone diagnosed at [facility], and back surgery. MEDICATIONS: Please see MAR. ALLERGIES: TETRACYCLINE, FENTANYL, WHEAT, SULFA, ASPIRIN, ERYTHROMYCIN BASE. SOCIAL HISTORY: Denies smoking or drinking. FAMILY HISTORY: Denies urologic stones or malignancies. REVIEW OF SYSTEMS: Noncontributory other than problems mentioned above for 12 organ systems. PHYSICAL EXAMINATION IN GENERAL: Elderly female currently in no acute distress. VITAL SIGNS: Temperature 99, pulse 80, respirations 18, blood pressure 182/77. HEENT: Her sclerae are anicteric. NECK: Supple. BACK: Without costovertebral angle tenderness bilaterally. ABDOMEN: Soft. It is nontender. It is nondistended. There is no palpable mass, no palpable hernias, no palpable inguinal lymphadenopathy. GENITOURINARY: Normal female external genitalia. EXTREMITIES: No edema. NEUROLOGIC: Moves extremities. PSYCHIATRIC: Alert. Mood appropriate. SKIN: Intact. Normal color. PERTINENT LABORATORY DATA: A CT scan revealing a 6 mm left ureterovesical junction calculus with left hydronephrosis, a 6 mm right kidney stone. CBC normal except for a white blood cell count of 13,000. Urinalysis: 10-20 whites, 5-10 reds. IMPRESSION 1. Left ureteral calculus. 2. Left hydronephrosis. 3. Urinary tract infection. 4. Microscopic hematuria. 5. Leukocytosis. 6. Hypertension. 7. Renal colic. 8. Right kidney stone and renal calculus. PLAN: Patient will undergo urgent/emergent stent placement for the obstructive infected stone. The patient has been begun on broad-spectrum antibiotics, would continue with this. Defer hypertension treatment to the primary service. Thank you for allowing us to participate in the care of your patient. We will be happy to follow along with you. Job#: [id number] EV cc:BRIAN HOWARD MD
[2018-07-15] MEDS ORDERED: SEVOFLURANE INHAL SOLN 250 ML PEN BTL ONE (16:09)
[2018-07-15] MEDS ORDERED: ROCURONIUM BROMIDE 10 MG/ML 5ML VIAL ONE (16:09)
[2018-07-15] MEDS ORDERED: DEXAMETHASONE SOD PHOS INJ 4 MG/ML VIAL ONE (16:09)
[2018-07-15] MEDS ORDERED: DIPHENHYDRAMINE HCL INJ 50 MG/ML VIAL ONE (16:09)
[2018-07-15] MEDS ORDERED: LIDOCAINE HCL 2% LOCAL INJ 5 ML SDV VIAL INJ ONE (16:09)
[2018-07-15] MEDS ORDERED: PROPOFOL IV EMULSION 10 MG/ML 20 ML VIAL ONE (16:09)
[2018-07-15] MEDS ORDERED: ONDANSETRON HCL INJ 2 MG/ML VIAL ONE (16:09)
[2018-07-15] MEDS ORDERED: GLYCOPYRROLATE INJ 1MG/ 5 ML SYR ONE (16:09)
[2018-07-15] MEDS ORDERED: SUCCINYLCHOLINE 200 MG/10 ML SYR ONE (16:09)
[2018-07-15] MEDS ORDERED: NEOSTIGMINE 5 MG/5ML SYR ONE (16:09)
[2018-07-16] VITALS (7 sets, daily range): BP systolic 118–136; BP diastolic 55–62
[2018-07-16] MEDS: CEFTRIAXONE SOD 1 GM VIAL IV SCH (02:27)
[2018-07-16 05:45] LABS: BASOPHILS % 0.4 % (0.0-1.0); EOSINOPHILS % 0.1 % (0.0-6.0); HEMATOCRIT 32.7 % (34.2-44.1); HEMOGLOBIN 10.7 g/dL (12.0-16.0); LYMPHOCYTES # (AUTO) 1.8 (1.0-3.2); MEAN CORPUSCULAR HEMOGLOBIN 29.6 pg (28-32); MEAN CORPUSCULAR HGB CONC 32.7 g/dL (31-35); MEAN CORPUSCULAR VOLUME 90.6 fL (81-99); MONOCYTES # (AUTO) 0.9 (0.2-0.8); MONOCYTES % 11.2 % (4.4-11.3); NEUTROPHILS # (AUTO) 4.8 (2.1-6.9); NEUTROPHILS % 63.4 % (38.7-80.0); PLATELET COUNT 161 x10e3/uL (140-360); RED BLOOD COUNT 3.61 x10e6/uL (3.6-5.1); RED CELL DISTRIBUTION WIDTH 13.4 % (11.7-14.4)
[2018-07-16] MEDS: LEVOTHYROXINE SODIUM 50 MCG TAB PO SCH (05:45)
[2018-07-16 06:16] LABS: ALANINE AMINOTRANSFERASE 18 IU/L (0-55); ALBUMIN 2.9 g/dL (3.5-5.0); ALKALINE PHOSPHATASE 71 IU/L (40-150); ANION GAP 13.9 mmol/L (8-16); BLOOD UREA NITROGEN 13 mg/dL (7-26); BUN/CREATININE RATIO 17 (6-25); CALCIUM 7.8 mg/dL (8.4-10.2); CARBON DIOXIDE 20 mmol/L (22-29); CHLORIDE 111 mmol/L (98-107); CREATININE, SERUM 0.76 mg/dL (0.57-1.11); EST GLOMERULAR FILTRATION RATE > 60 ML/MIN (60-); GLUCOSE 172 mg/dL (74-118); POTASSIUM 3.9 mmol/L (3.5-5.1); SODIUM 141 mmol/L (136-145)
[2018-07-16] MEDS: GABAPENTIN 100 MG CAP PO SCH ×2 (08:31→16:05)
[2018-07-16] MEDS: FAMOTIDINE 20 MG TAB PO SCH ×2 (08:31→16:05)
[2018-07-16] MEDS: TAMSULOSIN HCL 0.4 MG CAP PO SCH (08:31)
[2018-07-16] MEDS: SODIUM CHLORIDE 0.9% 1000ML 1,000 ML IV SCH ×2 (08:31→22:05)
[2018-07-16] MEDS: ATENOLOL 100 MG TAB PO SCH (08:31)
[2018-07-16] MEDS: ONDANSETRON HCL INJ 2 MG/ML VIAL IV PRN (16:31)
[2018-07-16] MEDS: HYDROMORPHONE 2MG/ML 2 MG/ML ML IV PRN (16:31)
[2018-07-16] MEDS ORDERED: ACETAMINOPHEN/CODEINE 300MG - 30MG TAB PO PRN (17:45)
[2018-07-16] MEDS ORDERED: DIPHENHYDRAMINE HCL 25 MG CAP PO PRN (20:30)
[2018-07-17] VITALS (7 sets, daily range): BP systolic 121–142; BP diastolic 49–66
[2018-07-17] MEDS: KETOROLAC TROMETHAMINE 30 MG/ML VIAL IM PRN (00:12)
[2018-07-17] MEDS: CEFTRIAXONE SOD 1 GM VIAL IV SCH (01:42)
[2018-07-17] MEDS: LEVOTHYROXINE SODIUM 50 MCG TAB PO SCH (05:42)
[2018-07-17] MEDS: FAMOTIDINE 20 MG TAB PO SCH ×2 (07:30→16:14)
[2018-07-17] MEDS: GABAPENTIN 100 MG CAP PO SCH ×2 (09:12→16:14)
[2018-07-17] MEDS: TAMSULOSIN HCL 0.4 MG CAP PO SCH (09:12)
[2018-07-17] MEDS: ATENOLOL 100 MG TAB PO SCH (09:13)
[2018-07-17] MEDS: SODIUM CHLORIDE 0.9% 1000ML 1,000 ML IV SCH ×2 (09:31→18:23)
[2018-07-17] MEDS ORDERED: PSEUDOEPHEDRINE HCL 30 MG TAB PO PRN (10:00)
[2018-07-17] MEDS ORDERED: BENZONATATE 100 MG CAP PO PRN (10:00)
[2018-07-17] MEDS ORDERED: ZOLPIDEM TARTRATE 5 MG TAB PO PRN (20:30)
[2018-07-18] MEDS: CEFTRIAXONE SOD 1 GM VIAL IV SCH (00:07)
[2018-07-18] MEDS: KETOROLAC TROMETHAMINE 30 MG/ML VIAL IM PRN (00:20)
[2018-07-18] MEDS: LEVOTHYROXINE SODIUM 50 MCG TAB PO SCH (06:17)
[2018-07-18] MEDS: SODIUM CHLORIDE 0.9% 1000ML 1,000 ML IV SCH (06:18)
[2018-07-18] MEDS ORDERED: KEFLEX500 MG PO (07:05)
[2018-07-18 07:18] VITALS: BP 141/66
[2018-07-18 08:45] VITALS: BP 141/66
[2018-07-18] MEDS: GABAPENTIN 100 MG CAP PO SCH (08:45)
[2018-07-18] MEDS: ATENOLOL 100 MG TAB PO SCH (08:45)
[2018-07-18] MEDS: TAMSULOSIN HCL 0.4 MG CAP PO SCH (08:45)
[2018-07-18] MEDS: FAMOTIDINE 20 MG TAB PO SCH (08:45)
[2018-07-18] MEDS ORDERED: TYLENOL WITH C1 EACH PO (10:51)
== END 2018-07-18 10:35 | disposition home or self-care (01) ==
LOC: ER 23:22 → ERHOLD 07-15 02:30 → IMCU 07-15 02:49 → INTOOBSV 07-18 08:27 → OBSVTOIN 07-18 08:27
PROVIDERS: ADMIT Internal Medicine; ATTEND Internal Medicine
DX: N13.6 Pyonephrosis (principal); R31.0 Gross hematuria; N20.0 Calculus of kidney; D64.9 Anemia, unspecified; E87.2 Acidosis; E11.42 Type 2 diabetes mellitus with diabetic polyneuropathy; Z79.84 Long term (current) use of oral hypoglycemic drugs; I10 Essential (primary) hypertension; E03.9 Hypothyroidism, unspecified; E66.9 Obesity, unspecified; Z68.35 Body mass index [BMI] 35.0-35.9, adult; M54.9 Dorsalgia, unspecified; G89.29 Other chronic pain; Z88.6 Allergy status to analgesic agent; Z88.1 Allergy status to other antibiotic agents; Z88.2 Allergy status to sulfonamides; Z91.018 Allergy to other foods
CPT/HCPCS: 36415 ×3; 52332; 74176; 74420; 80053 ×2; 80061; 81001; 83036; 85025 ×2; 87086; 93005; 99284; C2617; G0378 ×4; J0360; J0696 ×4; J1100; J1170 ×3; J1200; J1885 ×3; J2001; J2405 ×3; J2704; J3490; J7030 ×3; Q9967

== ENCOUNTER → 2018-07-22 | Day surgery (SDC) | payer MEDICARE ==
--- NOTE | 2018-07-20 17:49 | Diagnostic Imaging Report ---
EXAMINATION: CHEST 2 VIEWS INDICATION: ^PRE ADMIT ^[id number] ^[id number] COMPARISON: CT abdomen and pelvis 07/14/2018 FINDINGS: PA and lateral views TUBES and LINES: None. LUNGS: Lungs are well inflated. Mildly increased bilateral lower lobes interstitial lung markings. There is no evidence of pneumonia or pulmonary edema. PLEURA: No pleural effusion or pneumothorax. HEART AND MEDIASTINUM: The cardiomediastinal silhouette is unremarkable. BONES AND SOFT TISSUES: Stable fracture deformity with kyphoplasty treatment at T12 vertebral body. Soft tissues are unremarkable. UPPER ABDOMEN: No free air under the diaphragm. IMPRESSION: Bilateral lower lobes interstitial lung markings may relate to atelectasis or edema. Signed by: Dr. Samantha Ruby M.D. on 07/20/2018 5:46 PM
[~2018-07-22] MED LIST changes: +ACETAMINOPHEN 1000 MG/100 ML 100 ML IV ONE; +FENTANYL CITRATE/PF 100MCG/2 ML INJ ONE; +FLOMAX0.4 MG PO; +GABAPENTIN100 MG PO; +GENTAMICIN 80MG/NS 100 ML 100 ML IV ONE; +IOPAMIDOL 610MG/1ML 300 MG/ML VIAL IV ONE; +KEFLEX500 MG PO; +LIDOCAINE HCL 2% LOCAL INJ 5 ML SDV VIAL INJ ONE; +MIDAZOLAM HCL 2 MG/2 ML VIAL ONE; +ONDANSETRON HCL INJ 2 MG/ML VIAL ONE; +PROPOFOL IV EMULSION 10 MG/ML 20 ML VIAL ONE; +SEVOFLURANE INHAL SOLN 250 ML PEN BTL ONE; +TYLENOL WITH C1 EACH PO
--- OUTSIDE RECORDS SUMMARY | 2018-07-22 06:32 | XMS REPORT | Clinical Summary ---
Author Author [facility] Organization [facility] Address Unknown Phone Unavailable Care Team Providers Care Cinetechnician Name Role Phone Rony Gonzalez MD PCP [...] initial encounter 12/02/2017 Emergency Emergency Medicine after 07/21/2017 Social History Date Tobacco Use Types Packs/Day [...] Taken Vital Sign Reading 07/07/2018 2:57 AM CHILD AND ADOLESCENT PSYCHOLOGIST Blood Pressure 146/63 07/07/2018 2:57 AM CHILD AND ADOLESCENT PSYCHOLOGIST Pulse 89 07/06/2018 10:46 PM CHILD AND ADOLESCENT PSYCHOLOGIST Temperature 36.9 C (98.4 F) 07/07/2018 2:57 AM CHILD AND ADOLESCENT PSYCHOLOGIST Respiratory Rate 19 07/07/2018 2:57 AM CHILD AND ADOLESCENT PSYCHOLOGIST Oxygen Saturation 98% - Inhaled Oxygen - Concentration 07/07/2018 2:57 AM CHILD AND ADOLESCENT PSYCHOLOGIST Weight 91.6 kg (201 lb 15.1 oz) 07/07/2018 2:57 AM CHILD AND ADOLESCENT PSYCHOLOGIST Height 165.1 cm (5' 5") 07/07/2018 2:57 AM CHILD AND ADOLESCENT PSYCHOLOGIST Body Mass Index 33.6 Plan of Treatment Health Maintenance Due Date Last Done Comments DIABETIC RETINAL EYE EXAM 1934 DIABETIC FOOT EXAM 1944 URINE MICROALBUMIN 1944 SHINGLES VACCINES (1 of 1984 2) PNEUMOCOCCAL 1999 POLYSACCHARIDE VACCINE AGE 65 AND OVER PNEUMOCOCCAL-13 1999 INFLUENZA VACCINE 03/09/2018 Implants Device Identifier Shelf Expiration Date Model / Serial / Lot Implanted Type Area Manufactur er 09/08/2019 [id number] / / [id number] Kit Cmnt Spinal Hiviscocty 11ml Spinal N/A: N/A DEPU[employer] - [id number] Implants SPINE Implanted: 12/10/2017 (Quantity not on file) Procedures Comments Procedure Name Priority Date/Time Associated Diagnosis URINALYSIS SCREEN AND STAT 07/07/2018 MICROSCOPY, WITH REFLEX 2:18 AM CHILD AND ADOLESCENT PSYCHOLOGIST TO CULTURE CT ABDOMEN PELVIS W STAT 07/07/2018 CONTRAST 2:08 AM CHILD AND ADOLESCENT PSYCHOLOGIST ESTIMATED GFR STAT 07/06/2018 11:46 PM CHILD AND ADOLESCENT PSYCHOLOGIST LIPASE LEVEL STAT 07/06/2018 11:46 PM CHILD AND ADOLESCENT PSYCHOLOGIST COMPREHENSIVE METABOLIC STAT 07/06/2018 PANEL 11:46 PM CHILD AND ADOLESCENT PSYCHOLOGIST HC COMPLETE BLD COUNT STAT 07/06/2018 W/AUTO DIFF 11:46 PM CHILD AND ADOLESCENT PSYCHOLOGIST GRAM STAIN STAT 07/06/2018 10:48 PM CHILD AND ADOLESCENT PSYCHOLOGIST URINE CULTURE STAT 07/06/2018 10:48 PM CHILD AND ADOLESCENT PSYCHOLOGIST ZZESTIMATED GFR Routine 12/10/2017 4:20 AM CDT [...] STAT 12/02/2017 PANEL 12:45 PM CDT after 07/21/2017 Results * Urinalysis screen and microscopy, with reflex to culture (07/07/2018 2:18 AM CHILD AND ADOLESCENT PSYCHOLOGIST) Specimen site Clean catch [facility] Color, UA Yellow [facility] Appearance, UA Clear [facility] Specific gravity, UA 1.035 1.001 - 1.035 [facility] pH, UA 5.0 5.0 - 8.5 [facility] Protein, UA 2+ (A) Negative [facility] Glucose, UA Negative Negative [facility] Ketones, UA Trace (A) Negative [facility] Bilirubin, UA Negative Negative [facility] Blood, UA Large (A) Negative [facility] Nitrite, UA Negative Negative [facility] Urobilinogen, UA <2.0 <2.0 [facility] Leukocyte esterase, UA Small (A) Negative [facility] Epithelial cells, UA 4 /HPF [facility] WBC, UA 2 0 - 4 /HPF [facility] RBC, UA 54 (H) 0 - 5 /HPF [facility] Bacteria, UA None seen None seen [facility] Yeast, UA None seen [facility] Yeast with pseudohyphae, None seen [facility] Specimen Urine Performing Organization Address City/State/Zipcode Phone Number [facility] [address] [place] [address] PATHOLOGY AND GENOMIC MEDICINE [facility] [address] [place] [phone] HOSPITAL * CT Abdomen Pelvis W Contrast (07/07/2018 2:08 AM CHILD AND ADOLESCENT PSYCHOLOGIST) Narrative Performed At CT ABDOMEN PELVIS W [...] edema, and absence of a delayed nephrogram. [facility]-[id number] Procedure Note Interface, Radiology Results Incoming - 07/07/2018 2:18 AM CHILD AND ADOLESCENT PSYCHOLOGIST CT ABDOMEN PELVIS W CONTRAST CLINICAL INDICATION: [...] edema, and absence of a delayed nephrogram. [id number] Performing Organization Address City/State/Zipcode Phone Number [facility] [address] [place] [address] * Estimated GFR (07/06/2018 11:46 PM CHILD AND ADOLESCENT PSYCHOLOGIST) Estimated GFR 55 (A) mL/min/1.73 m2 [facility] Comment: HOSPITAL CatergoryUnitsInte rpretation G1 >=90 Normal or high G2 60-89Mildly decreased [id number] Mildly to moderately decreased [id number] Moderately to severely decreased G4 15-29Severely decreased G5 <15Kidney failure The eGFR was calculated using the Chronic Kidney Disease Epidemiology Collaboration (CKD-EPI) equation. Interpretation is based on recommendations of the National Kidney Foundation-Kidney Disease Outcomes Quality Initiative (NKF-KDOQI) published in 2014. Specimen Plasma specimen Performing Organization Address [facility] Phone Number [facility] [address] [place] [address] PATHOLOGY AND GENOMIC MEDICINE [address] * CBC with platelet and differential (07/06/2018 11:46 PM CHILD AND ADOLESCENT PSYCHOLOGIST) Only the most recent of 6 results within the time period is included. WBC 14.30 (H) 4.50 - 11.00 k/uL [facility] RBC 4.57 4.20 - 5.50 m/uL [facility] HGB 13.5 12.0 - 16.0 g/dL [facility] HCT 39.3 37.0 - 47.0 % [facility] MCV 86.0 82.0 - 100.0 fL [facility] MCH 29.5 27.0 - 34.0 pg [facility] MCHC 34.4 31.0 - 37.0 g/dL [facility] RDW - SD 42.1 37.0 - 55.0 fL [facility] MPV 10.8 8.8 - 13.2 fL [facility] Platelet count 202 150 - 400 k/uL [facility] Nucleated RBC 0.00 /100 WBC [facility] Neutrophils 69.6 (H) 39.0 - 69.0 % [facility] Lymphocytes 18.8 (L) 25.0 - 45.0 % [facility] Monocytes 10.0 0.0 - 10.0 % [facility] Eosinophils 0.6 0.0 - 5.0 % [facility] Basophils 0.4 0.0 - 1.0 % [facility] Immature granulocytes 0.6Comment: "Immature 0.0 - 1.0 % [facility] granulocytes" (promyelocytes, HOSPITAL myelocytes, metamyelocytes) Specimen Blood Performing Organization Address [facility] Phone Number [facility] [address] [place] [address] PATHOLOGY AND GENOMIC MEDICINE [address] * Lipase level (07/06/2018 11:46 PM CHILD AND ADOLESCENT PSYCHOLOGIST) Lipase 10 (L) 13 - 60 U/L [facility] Specimen Plasma specimen Performing Organization Address City/[facility] Phone Number [facility] [address] [place] [address] PATHOLOGY AND GENOMIC MEDICINE [address] * Comprehensive metabolic panel (07/06/2018 11:46 PM CHILD AND ADOLESCENT PSYCHOLOGIST) Only the most recent of 3 results within the time period is included. Sodium 141 135 - 148 mEq/L [facility] Potassium 3.8 3.5 - 5.0 mEq/L [facility] Chloride 103 98 - 112 mEq/L [facility] CO2 21 (L) 24 - 31 mEq/L [facility] Anion gap 17@ANIO (H) 7 - 15 mEq/L [facility] BUN 13 8 - 23 mg/dL [facility] Creatinine 0.95 (H) 0.50 - 0.90 mg/dL [facility] Glucose 156 (H) 65 - 99 mg/dL [facility] Calcium 9.6 8.8 - 10.2 mg/dL [facility] Protein 7.8 6.3 - 8.3 g/dL [facility] Comment: HOSPITAL 4.6-7.0 g/dL 1 week 4.4-7.6 g/dL 7 months-1year 5.1-7.3 g/dL 1-2 years5.6-7 .5 g/dL >3 years6.0-8 .0 g/dL 18-150 6.3-8.3 g/dL Albumin 3.9 3.5 - 5.0 g/dL [facility] A/G ratio 1.0 0.7 - 3.8 [facility] Alkaline phosphatase 79 35 - 104 U/L [facility] AST 33 10 - 35 U/L [facility] ALT 23 5 - 50 U/L [facility] Total bilirubin 0.9 0.0 - 1.2 mg/dL [facility] Specimen Plasma specimen Performing Organization Address City/State/Zipcode Phone Number [facility] [address] [place] [address] PATHOLOGY AND GENOMIC MEDICINE [address] * Gram stain (07/06/2018 10:48 PM CHILD AND ADOLESCENT PSYCHOLOGIST) Gram stain result Few WBC's [facility] Gram positive rods [facility] Comment: Specimen Information Specimen Source: Urine Specimen Site: Clean catch Specimen Urine Performing Organization Address City/[facility] Phone Number [facility] [place] [address] PATHOLOGY AND GENOMIC MEDICINE [facility] * Urine culture (07/06/2018 10:48 PM CHILD AND ADOLESCENT PSYCHOLOGIST) Urine culture isolate Mixed asad 10-5 col/cc [facility] Comment: HOSPITAL Specimen Information Specimen Source: Urine Specimen Site: Clean catch Specimen Urine Performing Organization Address [facility] Phone Number [facility] [place] [address] PATHOLOGY AND GENOMIC MEDICINE [address] * Estimated GFR (12/10/2017 4:20 AM CDT) Only the most recent of 5 results within the time period is included. GFR Non Af Amer 60 mL/min/1.73 m2 [facility] PATHOLOGY AND GENOMIC MEDICINE GFR Af Amer 72 mL/min/1.73 m2 [facility] Comment: PATHOLOGY AND Chronic kidney [...] Americans. Specimen Plasma specimen Performing Organization Address [facility] Phone Number [facility] [place] [address] PATHOLOGY AND GENOMIC MEDICINE * Phosphorus level (12/10/2017 4:20 AM CDT) Only the most recent of 3 results within the time period is included. Phosphorus 2.8 2.4 - 4.5 mg/dL [facility] PATHOLOGY AND GENOMIC MEDICINE Specimen Plasma specimen Performing Organization Address City/[facility]/Zipcode Phone Number [facility] [place] [address] PATHOLOGY AND GENOMIC MEDICINE * Magnesium level (12/10/2017 4:20 AM CDT) Only the most recent of 3 results within the time period is included. Magnesium 1.9 1.6 - 2.4 mg/dL [facility] PATHOLOGY AND GENOMIC MEDICINE Specimen Plasma specimen Performing Organization Address City/[facility] [place] [address] PATHOLOGY AND [facility] MEDICINE * Hemoglobin A1c (12/10/2017 4:20 AM CDT) Hemoglobin A1C 5.6 4.0 - 5.6 % [facility] Comment: PATHOLOGY AND HbA1c cutoffs for diagnosing [facility] diabetes: 4.0% - 5.6%=normal 5.7% - 6.4%=increased risk for diabetes (prediabetes) >=6.5%=diabetes Goals for glycemic control (ADA 2016) < 7.0%Target for non adults with diabetes. More or less stringent targets may be appropriate for individual patients. <7.5% Target for Children and adolescents with type 1 diabetes. Specimen Blood Performing Organization Address [facility] [place] [address] PATHOLOGY AND [facility] MEDICINE * Basic metabolic panel (12/10/2017 4:20 AM CDT) Only the most recent of 3 results within the time period is included. Sodium 139 135 - 148 mEq/L [facility] PATHOLOGY AND GENOMIC MEDICINE Potassium 4.3 3.5 - 5.0 mEq/L [facility] PATHOLOGY AND GENOMIC MEDICINE Chloride 102 98 - 112 mEq/L [facility] PATHOLOGY AND GENOMIC MEDICINE CO2 28 24 - 31 mEq/L [facility] PATHOLOGY AND GENOMIC MEDICINE Anion gap 9 7 - 15 mEq/L [facility] Comment: PATHOLOGY AND Starting from November [facility] , anion gap calculation no longer incorporates potassium. Please note the change. BUN 12 8 - 23 mg/dL [facility] PATHOLOGY AND GENOMIC MEDICINE Creatinine 0.9 0.5 - 0.9 mg/dL [facility] PATHOLOGY AND GENOMIC MEDICINE Glucose 187 (H) 65 - 99 mg/dL [facility] PATHOLOGY AND GENOMIC MEDICINE Calcium 8.5 (L) 8.8 - 10.2 mg/dL [facility] PATHOLOGY AND GENOMIC MEDICINE Specimen Plasma specimen Performing Organization Address City/[facility]/[place] [address] PATHOLOGY AND GENOMIC MEDICINE * IR Vertebroplasty [...] was conducted with an anesthesiologist. Prophylactic intravenous mg ciprofloxacin was given. The thoracolumbar region [...] images. Total radiation exposure was 518 mGy. [id number] Procedure Note [facility], Radiology Results Incoming - 12/09/2017 4:38 PM [...] images. Total radiation exposure was 518 mGy. [id number] Performing Organization Address [facility] Phone Number [place] [phone] * Total iron binding capacity (12/09/2017 4:06 AM CDT) Iron level 32 (L) 37 - 145 ug/dL [facility] PATHOLOGY AND GENOMIC MEDICINE Iron binding capacity 232 200 - 400 ug/dL [facility] PATHOLOGY AND GENOMIC MEDICINE % Saturation 13.8 (L) 15.0 - 38.0 % [facility] PATHOLOGY AND GENOMIC MEDICINE Specimen Plasma specimen Performing Organization Address [facility] Phone Number [address] [address] PATHOLOGY AND GENOMIC MEDICINE * Prothrombin time with INR (12/09/2017 4:06 AM CDT) Only the most recent of 2 results within the time period is included. Prothrombin time 13.9 12.0 - 15.0 sec [facility] PATHOLOGY AND GENOMIC MEDICINE INR 1.1 [facility] Comment: PATHOLOGY AND The International Normalized GENOMIC MEDICINE Ratio (INR) is a therapeutic monitoring tool for patients who are stable on oral anticoagulant therapy. An INR of 2.0-3.0 is suggested for deep vein thrombosis/pulmonary embolism. Specimen Blood Performing Organization Address [facility] Phone Number [facility] [place] [address] PATHOLOGY AND GENOMIC MEDICINE * Transferrin level (12/09/2017 4:06 AM CDT) Transferrin 206 200 - 360 mg/dL [facility] PATHOLOGY AND GENOMIC MEDICINE Specimen Plasma specimen Performing Organization Address City/[facility]/Zipcode Phone Number [facility] [place] [address] PATHOLOGY AND GENOMIC MEDICINE * Ferritin level (12/09/2017 4:06 AM CDT) Ferritin level 121 13 - 150 ng/mL [facility] PATHOLOGY AND GENOMIC MEDICINE Specimen Plasma specimen Performing Organization Address City/[facility] Phone Number [facility] [place] [address] PATHOLOGY AND GENOMIC MEDICINE * Type and screen (12/09/2017 4:00 AM CDT) ABO grouping O [facility] PATHOLOGY AND GENOMIC MEDICINE Rh type POS [facility] PATHOLOGY AND GENOMIC MEDICINE Antibody screen (gel) NEG [facility] PATHOLOGY AND GENOMIC MEDICINE Specimen Blood Performing Organization Address [facility] Phone Number [facility] [place] [address] PATHOLOGY AND GENOMIC MEDICINE * XR Abdomen [...] are seen in the right upper quadrant. [id number] Procedure Note Interface, Radiology Results Incoming - [...] are seen in the right upper quadrant. [id number] Performing Organization Address [facility]/Zipcode Phone Number [facility] [address] [place] [address] * Vitamin D 25 hydroxy level (12/08/2017 4:00 AM CDT) Vitamin D, 25-hydroxy 21.7 (L) 30.0 - 150.0 ng/mL [facility] Comment: PATHOLOGY AND This assay [...] alternative methods. Specimen Blood Performing Organization Address [facility] Phone Number [facility] [address] [place] [address] PATHOLOGY AND GENOMIC MEDICINE * CT Thoracic Spine Wo Contrast (12/07/2017 6:55 PM CDT) Narrative Performed At EXAMINATION: CT THORACIC SPINE WO [facility]: point tenderness along T-spine COMPARISON:Outside [...] superior endplate without significant spinal canal narrowing. [id number] Procedure Note [facility], Radiology Results Incoming - 12/07/2017 7:16 PM [...] superior endplate without significant spinal canal narrowing. [id number] Performing Organization Address City/State/Zipcode Phone Number [facility] [address] [place] [address] * POC glucose (12/07/2017 7:58 AM CDT) POC glucose 124 (H) 65 - 99 mg/dL [facility] Comment: PATHOLOGY AND No Action Needed GENOMIC MEDICINE [facility] Notified RN Meter ID: [id number] Care Technician: Mik Le Performing Organization Address City/State/[place] [address] PATHOLOGY AND [facility] MEDICINE * ECG 12 lead (12/07/2017 2:17 AM CDT) Ventricular rate 66 [facility] Atrial rate 66 [facility] LA interval 188 [facility] QRSD interval 82 [facility] QT interval 436 [facility] QTC interval 457 [facility] P axis 1 60 [facility] QRS axis 1 30 [facility] T wave axis 57 [facility] EKG impression Normal sinus rhythm-Possible [facility] Lateral infarct , age undetermined-Abnormal ECG-No previous ECGs available- Performing Organization Address [facility] Phone Number [facility] [address] [place] [address] * Troponin (12/07/2017 12:49 AM CDT) Troponin <0.30 0.00 - 0.30 ng/mL [facility] Comment: PATHOLOGY AND 0.30 - 1.49 GENOMIC MEDICINE ng/mlMay indicate increased risk of acute coronary syndrome. >=1.5 ng/ml Consistent with acute myocardial infarction. The diagnostic value of a single normal or non-diagnostic result is questionable.Serial samples at 2-6 hour intervals are required to rule out acute myocardial injury. Specimen Plasma specimen Performing Organization Address [facility] [place] [address] PATHOLOGY AND [facility] * Partial thromboplastin time, activated (12/07/2017 12:49 AM CDT) PTT 32.4 23.0 - 36.0 sec [facility] Comment: PATHOLOGY AND PTT therapeutic range for [facility] MEDICINE unfractionated heparin is 61.0-112.0 seconds which corresponds to Anti-Xa 0.3-0.7 U/ml. Specimen Blood Performing Organization Address [facility]/[place] [address] PATHOLOGY AND [facility] MEDICINE * Thyroid stimulating hormone (12/07/2017 12:49 AM CDT) TSH 4.18 0.27 - 4.20 uIU/mL [facility] PATHOLOGY AND [facility] MEDICINE Specimen Plasma specimen Performing Organization Address City/[facility]/Zipcode Phone Number [address] [address] PATHOLOGY AND GENOMIC MEDICINE * T4, free (12/07/2017 12:49 AM CDT) T4, free 1.4 0.9 - 1.7 ng/dL [facility] PATHOLOGY AND GENOMIC MEDICINE Specimen Plasma specimen Performing Organization Address City/[facility] [place] [address] PATHOLOGY AND GENOMIC MEDICINE * B natriuretic peptide (12/07/2017 12:49 AM CDT) BNP 52 0 - 100 pg/mL [facility] PATHOLOGY AND GENOMIC MEDICINE Specimen Blood Performing Organization Address City/[facility] [place] [address] PATHOLOGY AND GENOMIC MEDICINE * Lipid panel (12/07/2017 12:49 AM CDT) Cholesterol 190 <200 mg/dL [facility] PATHOLOGY AND GENOMIC MEDICINE Triglycerides 257 (H) <150 mg/dL [facility] PATHOLOGY AND GENOMIC MEDICINE HDL cholesterol 39 (L) >40 mg/dL [facility] PATHOLOGY AND GENOMIC MEDICINE LDL cholesterol 119 (H)Comment: Result <100 mg/dL [facility] obtained by direct LDL PATHOLOGY AND measurement GENOMIC MEDICINE Lipid panel SeeBelow [facility] interpretation Comment: PATHOLOGY AND Total [...] mg/dL) Specimen Plasma specimen Performing Organization Address City/[facility]/Zipcode Phone Number [facility] [address] [place] [address] PATHOLOGY AND GENOMIC MEDICINE * CT Spine External Study (12/06/2017 1:42 PM CDT) Narrative Performed At This exam was not acquired at a [facility] facility and has not been [facility] interpreted by a [facility] Provider.The exam was imported into our imaging system for comparisons purposes. Performing Organization Address [facility] Phone Number [facility] [address] [place] [address] * XR Hip 2-3 View Left (12/02/2017 2:03 PM CDT) Narrative Performed At EXAMINATION:XR HIP 2-3 VIEWS [facility] CLINICAL H[facility]:pain post fall COMPARISON:None. TECHNIQUE: 3 [...] mild degenerative changes present consistent with osteoarthritis. [id number] Procedure Note Interface, Radiology Results Incoming - [...] mild degenerative changes present consistent with osteoarthritis. [id number] Performing Organization Address [facility] Phone Number [facility] [address] [place] [address] * XR Ribs W Pa Chest Left (12/02/2017 2:03 PM CDT) Narrative Performed At EXAMINATION:XR RIBS W PA CHEST LEFT [facility] CLINICAL HISTORY:paintrauma COMPARISON:None. IMPRESSION: 1.The bones are osteopenic. No rib fracture or focal osseous lesion is seen. Lumbar hardware is present. [id number] Procedure Note Hm Interface, Radiology Results Incoming - 12/02/2017 2:15 PM CDT EXAMINATION: XR RIBS W PA CHEST LEFT CLINICAL HISTORY: pain trauma COMPARISON: None. IMPRESSION: 1. The bones are osteopenic. No rib fracture or focal osseous lesion is seen. Lumbar hardware is present. [id number] Performing Organization Address City/State/Zipcode Phone Number [facility] [address] [place] [address] after 07/21/2017 Insurance Payer Benefit Subscriber ID Type Phone Address Plan / Group [employer] CIGNA xxxxxxxxxxx [facility] ([place]) [place] [address] Advance Directives Patient has advance care planning documents on file. For more information, darby lopes contact: [employer] [address] [place] [address]
[2018-07-22 09:05] VITALS: BP 140/60
--- NOTE | 2018-07-22 14:46 | Operative Report ---
DATE OF PROCEDURE: July 22, 2018 PREOPERATIVE DIAGNOSES 1. Indwelling left ureteral stent. 2. Left ureteral calculus. 3. Left hydronephrosis. POSTOPERATIVE DIAGNOSES 1. Indwelling left ureteral stent. 2. Left ureteral calculus. 3. Left hydronephrosis. PROCEDURES 1. Cystourethroscopy with complicated removal of left indwelling stent (entirely separate procedure for the diagnosis of left indwelling stent). 2. Left-sided ureteroscopy with laser lithotripsy (entirely separate procedure for the left ureteral calculus). 3. Left-sided ureteroscopy with stone extraction (entirely separate procedure for the explicit purpose of sending the stone for analysis, not required for laser lithotripsy). 4. Supervision of fluoroscopy. 5. Interpretation of retrograde ureteropyelography. ANESTHESIA: General. ESTIMATED BLOOD LOSS: Minimal. COMPLICATIONS: None. INDICATIONS FOR PROCEDURE: Mrs. Mcdaniels is an 83-year-old female patient with a history of left ureteral stent and stone. She and I had a long discussion about alternatives, risks and benefits including doing nothing, ureteroscopy, stent removal, percutaneous procedure, and open surgery. She voiced understanding of the options, alternatives, risks, and benefits and she elected to proceed. PROCEDURE IN DETAIL: After informed consent was obtained, the patient was taken to the operating suite and placed on the operating table and underwent general anesthesia by the anesthesia service. She was then sterilely prepped and draped for cystoscopy. A 22.5-Maori cystoscope was inserted per urethra. Panendoscopy of the bladder revealed no tumors and no stones. Encrusted stent was seen extruding from the ureteral orifice. A guidewire was inserted alongside the stent. The stent was removed. The ureteroscope was advanced to the level of the stone. A 360 micron laser fiber was introduced. The stone was obliterated into small fragments. All fragments were basket extracted and passed off the table as a specimen for the explicit purpose of sending stone for analysis, not required for laser lithotripsy. At this time, the scope was advanced into the proximal ureter. Retrograde pyelogram was performed with the ureteroscope, and revealed no other filling defects. The bladder was drained. The patient was awakened from anesthesia and transported to the recovery room in excellent condition. SUPERVISION OF FLUOROSCOPY, INTERPRETATION OF RETROGRADE URETERAL PYELOGRAPHY: I was present throughout the entire procedure and I supervised the use of fluoroscopy. There was no radiologist present at any time during this procedure. Attention was turned toward the left and right ureteral orifices, which were catheterized in a retrograde fashion with the ureteroscope. The ureteral duct revealed collecting system. No evidence of filling defects. No evidence of hydronephrosis. IMPRESSION: Intramural removal of stent and ureteral stone. Otherwise, normal retrograde pyelogram. Job#: [id number]
== END | disposition home or self-care (01) ==
LOC: OR 06:29
PROVIDERS: ATTEND Urology
DX: N13.2 Hydronephrosis with renal and ureteral calculous obstruction (principal); I10 Essential (primary) hypertension; K21.9 Gastro-esophageal reflux disease without esophagitis; D64.9 Anemia, unspecified; F41.8 Other specified anxiety disorders; Z88.6 Allergy status to analgesic agent; Z88.2 Allergy status to sulfonamides; Z88.8 Allergy status to other drugs, medicaments and biological substances; Z91.018 Allergy to other foods; Z96.653 Presence of artificial knee joint, bilateral
CPT/HCPCS: 52353; 71046; 74420; 88300; J0131; J1580; J2001; J2250; J2405; J2704; Q9967

== ENCOUNTER → 2018-08-10 | Day surgery (SDC) | payer MEDICARE ==
[~2018-08-10] MED LIST changes: -ACETAMINOPHEN 1000 MG/100 ML 100 ML IV ONE; +CEFTRIAXONE SOD 1 GM/NS 50 ML 50 ML IV ONE; +DIPHENHYDRAMINE HCL INJ 50 MG/ML VIAL ONE; -FENTANYL CITRATE/PF 100MCG/2 ML INJ ONE; -GENTAMICIN 80MG/NS 100 ML 100 ML IV ONE; -IOPAMIDOL 610MG/1ML 300 MG/ML VIAL IV ONE; +METOCLOPRAMIDE HCL 10 MG/2ML VIAL ONE; -MIDAZOLAM HCL 2 MG/2 ML VIAL ONE
--- OUTSIDE RECORDS SUMMARY | 2018-08-10 10:32 | XMS REPORT | Clinical Summary ---
Author Author [facility] Organization [employer] Address Unknown Phone Unavailable Care Team Providers Care Educational Specialist Name Role Phone Rony Gonzalez MD PCP [...] 1 tablet 0 tablet by mouth daily. 07/07/2018 Discontinued traMADol (ULTRAM) 50 mg Take [...] total) by mouth daily for 30 days. 08/06/2018 ibuprofen (ADVIL,MOTRIN) Take 1 tablet 30 tablet 0 600 MG tablet (600 mg 8 total) by mouth every 8 (eight) hours as needed for moderate pain for up to 30 days. 07/07/2018 Discontinued acetaminophen (TYLENOL Take [...] moderate pain for up to 3 days. 08/06/2018 ondansetron ODT (ZOFRAN Take 1 tablet 9 tablet 0 ODT) 8 MG disintegrating (8 mg total) 8 tablet by mouth every 8 (eight) hours as needed for nausea for up to 30 days. 08/06/2018 tamsulosin (FLOMAX) 0.4 Take 1 30 capsule 0 mg capsule capsule (0.4 8 mg total) by mouth daily for 30 days. Active Problems Problem Noted Date Compression [...] initial encounter 12/02/2017 Emergency Emergency Medicine after 08/09/2017 Social History Date Tobacco Use Types Packs/Day [...] Taken Vital Sign Reading 07/07/2018 2:57 AM [employer] Blood Pressure 146/63 07/07/2018 2:57 AM [employer] Pulse 89 07/06/2018 10:46 PM [employer] Temperature 36.9 C (98.4 F) 07/07/2018 2:57 AM [employer] Respiratory Rate 19 07/07/2018 2:57 AM [employer] Oxygen Saturation 98% - Inhaled Oxygen - Concentration 07/07/2018 2:57 AM [employer] Weight 91.6 kg (201 lb 15.1 oz) 07/07/2018 2:57 AM [employer] Height 165.1 cm (5' 5") 07/07/2018 2:57 AM [employer] Body Mass Index 33.6 Plan of Treatment Health Maintenance Due Date Last Done Comments DIABETIC RETINAL EYE EXAM 1934 DIABETIC FOOT EXAM 1944 URINE MICROALBUMIN 1944 SHINGLES VACCINES (1 of 1984 2) PNEUMOCOCCAL 1999 POLYSACCHARIDE VACCINE AGE 65 AND OVER PNEUMOCOCCAL-13 1999 INFLUENZA VACCINE 03/09/2018 Implants Device Identifier Shelf Expiration Date Model / Serial / Lot Implanted Type Area Manufactur er 09/08/2019 [id number] / / [id number] Kit Cmnt Spinal Hiviscocty 11ml Spinal N/A: N/A DEPUY [employer] - [id number] Implants SPINE Implanted: 12/10/2017 (Quantity not on file) Procedures Comments Procedure Name Priority Date/Time Associated Diagnosis URINALYSIS SCREEN AND STAT 07/07/2018 MICROSCOPY, WITH REFLEX 2:18 AM [employer] TO CULTURE CT ABDOMEN PELVIS W STAT 07/07/2018 CONTRAST 2:08 AM [employer] ESTIMATED GFR STAT 07/06/2018 11:46 PM [employer] LIPASE LEVEL STAT 07/06/2018 11:46 PM [employer] COMPREHENSIVE METABOLIC STAT 07/06/2018 PANEL 11:46 PM [employer] HC COMPLETE BLD COUNT STAT 07/06/2018 W/AUTO DIFF 11:46 PM [employer] GRAM STAIN STAT 07/06/2018 10:48 PM [employer] URINE CULTURE STAT 07/06/2018 10:48 PM [employer] ZZESTIMATED GFR Routine 12/10/2017 4:20 AM CDT [...] STAT 12/02/2017 PANEL 12:45 PM CDT after 08/09/2017 Results * Urinalysis screen and microscopy, with reflex to culture (07/07/2018 2:18 AM [employer]) Specimen site Clean catch [facility] Color, UA Yellow [facility] Appearance, UA Clear [facility] Specific gravity, UA 1.035 1.001 - 1.035 [facility] pH, UA 5.0 5.0 - 8.5 [facility] Protein, UA 2+ (A) Negative [facility] Glucose, UA Negative Negative [facility] Ketones, UA Trace (A) Negative [facility] Bilirubin, UA Negative Negative [facility] Blood, UA Large (A) Negative [facility] Nitrite, UA Negative Negative [facility] Urobilinogen, UA <2.0 <2.0 [facility] Leukocyte esterase, UA Small (A) Negative [facility] Epithelial cells, UA 4 /HPF [facility] WBC, UA 2 0 - 4 /HPF [facility] RBC, UA 54 (H) 0 - 5 /HPF [facility] Bacteria, UA None seen None seen [facility] Yeast, UA None seen [facility] Yeast with pseudohyphae, None seen [facility] Specimen Urine Performing Organization Address City/State/Zipcode Phone Number [facility] DEPARTMENT OF [address] [place] [address] PATHOLOGY AND GENOMIC MEDICINE [facility] [id number] HOSPITAL * CT Abdomen Pelvis W Contrast (07/07/2018 2:08 AM [employer]) Narrative Performed At CT ABDOMEN PELVIS W [...] edema, and absence of a delayed nephrogram. [facility]-[id number] Procedure Note [facility], Radiology Results Incoming - 07/07/2018 2:18 AM [employer] CT ABDOMEN PELVIS W CONTRAST CLINICAL INDICATION: [...] edema, and absence of a delayed nephrogram. [facility]-[id number] Performing Organization Address City/State/Zipcode Phone Number [facility] [address] [place] [address] * Estimated GFR (07/06/2018 11:46 PM [employer]) Estimated GFR 55 (A) mL/min/1.73 m2 [facility] Comment: HOSPITAL CatergoryUnitsInte rpretation G1 >=90 Normal or high G2 60-89Mildly decreased U1d74-04 Mildly to moderately decreased C5v37-76 Moderately to severely decreased G4 15-29Severely decreased G5 <15Kidney failure The eGFR was calculated using the Chronic Kidney Disease Epidemiology Collaboration (CKD-EPI) equation. Interpretation is based on recommendations of the National Kidney Foundation-Kidney Disease Outcomes Quality Initiative (NKF-KDOQI) published in 2014. Specimen Plasma specimen Performing Organization Address City/[facility] Phone Number [facility] DEPARTMENT OF [address] [place] [address] PATHOLOGY AND GENOMIC MEDICINE [address] * CBC with platelet and differential (07/06/2018 11:46 PM [employer]) Only the most recent of 6 results within the time period is included. WBC 14.30 (H) 4.50 - 11.00 k/uL [facility] RBC 4.57 4.20 - 5.50 m/uL [facility] HGB 13.5 12.0 - 16.0 g/dL [facility] HCT 39.3 37.0 - 47.0 % [facility] MCV 86.0 82.0 - 100.0 fL [facility] MCH 29.5 27.0 - 34.0 pg [facility] MCHC 34.4 31.0 - 37.0 g/dL [facility] RDW - SD 42.1 37.0 - 55.0 fL [facility] MPV 10.8 8.8 - 13.2 fL [facility] Platelet count 202 150 - 400 k/uL [facility] Nucleated RBC 0.00 /100 WBC [facility] Neutrophils 69.6 (H) 39.0 - 69.0 % [facility] Lymphocytes 18.8 (L) 25.0 - 45.0 % [facility] Monocytes 10.0 0.0 - 10.0 % [facility] Eosinophils 0.6 0.0 - 5.0 % [facility] Basophils 0.4 0.0 - 1.0 % [facility] Immature granulocytes 0.6Comment: "Immature 0.0 - 1.0 % [facility] granulocytes" (promyelocytes, HOSPITAL myelocytes, metamyelocytes) Specimen Blood Performing Organization Address City/[facility] Phone Number [facility] DEPARTMENT [facility] [place] [address] PATHOLOGY AND GENOMIC MEDICINE [address] * Lipase level (07/06/2018 11:46 PM [employer]) Lipase 10 (L) 13 - 60 U/L [facility] Specimen Plasma specimen Performing Organization Address City/[facility]/Zipcode Phone Number [facility] DEPARTMENT OF [address] [place] [address] PATHOLOGY AND GENOMIC MEDICINE [address] * Comprehensive metabolic panel (07/06/2018 11:46 PM [employer]) Only the most recent of 3 results within the time period is included. Sodium 141 135 - 148 mEq/L [facility] Potassium 3.8 3.5 - 5.0 mEq/L [facility] Chloride 103 98 - 112 mEq/L [facility] CO2 21 (L) 24 - 31 mEq/L [facility] Anion gap 17@ANIO (H) 7 - 15 mEq/L [facility] BUN 13 8 - 23 mg/dL [facility] Creatinine 0.95 (H) 0.50 - 0.90 mg/dL [facility] Glucose 156 (H) 65 - 99 mg/dL [facility] Calcium 9.6 8.8 - 10.2 mg/dL [facility] Protein 7.8 6.3 - 8.3 g/dL [facility] Comment: HOSPITAL [place] 4.6-7.0 g/dL 1 week 4.4-7.6 g/dL 7 months-1year 5.1-7.3 g/dL 1-2 years5.6-7 .5 g/dL >3 years6.0-8 .0 g/dL 18-150 6.3-8.3 g/dL Albumin 3.9 3.5 - 5.0 g/dL [facility] A/G ratio 1.0 0.7 - 3.8 [facility] Alkaline phosphatase 79 35 - 104 U/L [facility] AST 33 10 - 35 U/L [facility] ALT 23 5 - 50 U/L [facility] Total bilirubin 0.9 0.0 - 1.2 mg/dL [facility] Specimen Plasma specimen Performing Organization Address City/State/Zipcode Phone Number [facility] DEPARTMENT OF [address] [place] [address] PATHOLOGY AND GENOMIC MEDICINE [address] * Gram stain (07/06/2018 10:48 PM [employer]) Gram stain result Few WBC's [facility] Gram positive rods [facility] Comment: Specimen Information Specimen Source: Urine Specimen Site: Clean catch Specimen Urine Performing Organization Address [facility] Phone Number [facility] [place] [address] PATHOLOGY AND GENOMIC MEDICINE [address] * Urine culture (07/06/2018 10:48 PM [employer]) Urine culture isolate Mixed asad 10-5 col/cc [facility] Comment: HOSPITAL Specimen Information Specimen Source: Urine Specimen Site: Clean catch Specimen Urine Performing Organization Address [facility] Phone Number [facility] [place] [address] PATHOLOGY AND GENOMIC MEDICINE [address] * Estimated GFR (12/10/2017 4:20 AM CDT) Only the most recent of 5 results within the time period is included. GFR Non Af Amer 60 mL/min/1.73 m2 [facility] DEPARTMENT OF PATHOLOGY AND GENOMIC MEDICINE GFR Af Amer 72 mL/min/1.73 m2 [facility] DEPARTMENT OF Comment: PATHOLOGY AND Chronic kidney [...] Americans. Specimen Plasma specimen Performing Organization Address [facility] Phone Number [facility] [place] [address] PATHOLOGY AND [employer] [facility]IC[facility] * Phosphorus level (12/10/2017 4:20 AM CDT) Only the most recent of 3 results within the time period is included. Phosphorus 2.8 2.4 - 4.5 mg/dL [facility] DEPARTMENT OF PATHOLOGY AND GENOMIC MEDICINE Specimen Plasma specimen Performing Organization Address City/[facility]/Zipcode Phone Number [facility] [place] [address] PATHOLOGY AND GENOMIC MEDICINE * Magnesium level (12/10/2017 4:20 AM CDT) Only the most recent of 3 results within the time period is included. Magnesium 1.9 1.6 - 2.4 mg/dL [facility] DEPARTMENT OF PATHOLOGY AND GENOMIC MEDICINE Specimen Plasma specimen Performing Organization Address City/[facility] [place] [address] PATHOLOGY AND [facility] * Hemoglobin A1c (12/10/2017 4:20 AM CDT) Hemoglobin A1C 5.6 4.0 - 5.6 % [facility] DEPARTMENT OF Comment: PATHOLOGY AND HbA1c cutoffs for diagnosing [facility] diabetes: 4.0% - 5.6%=normal 5.7% - 6.4%=increased risk for diabetes (prediabetes) >=6.5%=diabetes Goals for glycemic control (ADA 2016) < 7.0%Target for non adults with diabetes. More or less stringent targets may be appropriate for individual patients. <7.5% Target for Children and adolescents with type 1 diabetes. Specimen Blood Performing Organization Address [facility] [place] [address] PATHOLOGY AND [facility] * Basic metabolic panel (12/10/2017 4:20 AM CDT) Only the most recent of 3 results within the time period is included. Sodium 139 135 - 148 mEq/L [facility] DEPARTMENT OF PATHOLOGY AND GENOMIC MEDICINE Potassium 4.3 3.5 - 5.0 mEq/L [facility] DEPARTMENT OF PATHOLOGY AND GENOMIC MEDICINE Chloride 102 98 - 112 mEq/L [facility] DEPARTMENT OF PATHOLOGY AND GENOMIC MEDICINE CO2 28 24 - 31 mEq/L [facility] DEPARTMENT OF PATHOLOGY AND GENOMIC MEDICINE Anion gap 9 7 - 15 mEq/L [facility] DEPARTMENT OF Comment: PATHOLOGY AND Starting from November [facility] , anion gap calculation no longer incorporates potassium. Please note the change. BUN 12 8 - 23 mg/dL [facility] DEPARTMENT OF PATHOLOGY AND GENOMIC MEDICINE Creatinine 0.9 0.5 - 0.9 mg/dL [facility] DEPARTMENT OF PATHOLOGY AND GENOMIC MEDICINE Glucose 187 (H) 65 - 99 mg/dL [facility] DEPARTMENT OF PATHOLOGY AND GENOMIC MEDICINE Calcium 8.5 (L) 8.8 - 10.2 mg/dL [facility] DEPARTMENT OF PATHOLOGY AND GENOMIC MEDICINE Specimen Plasma specimen Performing Organization Address City/[facility] Phone Number [address] [address] PATHOLOGY AND GENOMIC MEDICINE * IR Vertebroplasty [...] was conducted with an anesthesiologist. Prophylactic intravenous [id number] mg ciprofloxacin was given. The thoracolumbar region [...] images. Total radiation exposure was 518 mGy. [facility]-[id number] Procedure Note [facility], Radiology Results Incoming - 12/09/2017 4:38 PM [...] images. Total radiation exposure was 518 mGy. [facility]-[id number] Performing Organization Address [facility] Phone Number [facility] [address] [place] [address] * Total iron binding capacity (12/09/2017 4:06 AM CDT) Iron level 32 (L) 37 - 145 ug/dL [facility] DEPARTMENT OF PATHOLOGY AND GENOMIC MEDICINE Iron binding capacity 232 200 - 400 ug/dL [facility] DEPARTMENT OF PATHOLOGY AND GENOMIC MEDICINE % Saturation 13.8 (L) 15.0 - 38.0 % [facility] DEPARTMENT OF PATHOLOGY AND GENOMIC MEDICINE Specimen Plasma specimen Performing Organization Address [facility] Phone Number [facility] DEPARTMENT [facility] [place] [address] PATHOLOGY AND GENOMIC MEDICINE * Prothrombin time with INR (12/09/2017 4:06 AM CDT) Only the most recent of 2 results within the time period is included. Prothrombin time 13.9 12.0 - 15.0 sec [facility] DEPARTMENT OF PATHOLOGY AND GENOMIC MEDICINE INR 1.1 [facility] DEPARTMENT OF Comment: PATHOLOGY AND The International Normalized GENOMIC MEDICINE Ratio (INR) is a therapeutic monitoring tool for patients who are stable on oral anticoagulant therapy. An INR of 2.0-3.0 is suggested for deep vein thrombosis/pulmonary embolism. Specimen Blood Performing Organization Address [facility] Phone Number [place] [address] PATHOLOGY AND GENOMIC MEDICINE * Transferrin level (12/09/2017 4:06 AM CDT) Transferrin 206 200 - 360 mg/dL [facility] DEPARTMENT OF PATHOLOGY AND GENOMIC MEDICINE Specimen Plasma specimen Performing Organization Address City/[facility] Phone Number [facility] [place] [address] PATHOLOGY AND GENOMIC MEDICINE * Ferritin level (12/09/2017 4:06 AM CDT) Ferritin level 121 13 - 150 ng/mL [facility] DEPARTMENT OF PATHOLOGY AND GENOMIC MEDICINE Specimen Plasma specimen Performing Organization Address [facility] Phone Number [facility] [place] [address] PATHOLOGY AND GENOMIC MEDICINE * Type and screen (12/09/2017 4:00 AM CDT) ABO grouping O [facility] DEPARTMENT OF PATHOLOGY AND GENOMIC MEDICINE Rh type POS [facility] DEPARTMENT OF PATHOLOGY AND GENOMIC MEDICINE Antibody screen (gel) NEG [facility] DEPARTMENT OF PATHOLOGY AND GENOMIC MEDICINE Specimen Blood Performing Organization Address [facility] Phone Number [facility] [place] [address] PATHOLOGY AND GENOMIC MEDICINE * XR Abdomen [...] are seen in the right upper quadrant. [facility]-[id number] Procedure Note Interface, Radiology Results Incoming - [...] are seen in the right upper quadrant. [facility]-[id number] Performing Organization Address City/[facility]/Zipcode Phone Number [facility] [address] [place] [address] * Vitamin D 25 hydroxy level (12/08/2017 4:00 AM CDT) Vitamin D, 25-hydroxy 21.7 (L) 30.0 - 150.0 ng/mL [facility] DEPARTMENT OF Comment: PATHOLOGY AND This assay [...] alternative methods. Specimen Blood Performing Organization Address [facility] Phone Number [facility] DEPARTMENT OF [address] [place] [address] PATHOLOGY AND GENOMIC MEDICINE * CT Thoracic [...] superior endplate without significant spinal canal narrowing. [facility]-[id number] Procedure Note [facility], Radiology Results Incoming - 12/07/2017 7:16 PM [...] superior endplate without significant spinal canal narrowing. [facility]-[id number] Performing Organization Address City/State/Zipcode Phone Number [facility] [address] [place] [address] * POC glucose (12/07/2017 7:58 AM CDT) POC glucose 124 (H) 65 - 99 mg/dL [facility] DEPARTMENT OF Comment: PATHOLOGY AND No Action Needed GENOMIC MEDICINE [facility] Notified RN Meter ID: [id number] School Program Director: Mik Le Performing Organization Address City/State/[place] [address] PATHOLOGY AND GENOMIC MEDICINE * ECG 12 lead (12/07/2017 2:17 AM CDT) Ventricular rate 66 [facility] Atrial rate 66 [facility] TX interval 188 [facility] QRSD interval 82 [facility] QT interval 436 [facility] QTC interval 457 [facility] P axis 1 60 [facility]USE QRS axis 1 30 [facility] T wave axis 57 [facility] EKG impression Normal sinus rhythm-Possible [facility] Lateral infarct , age undetermined-Abnormal ECG-No previous ECGs available- Performing Organization Address [facility] [place] [address] * Troponin (12/07/2017 12:49 AM CDT) Troponin <0.30 0.00 - 0.30 ng/mL [facility] DEPARTMENT OF Comment: PATHOLOGY AND 0.30 - 1.49 GENOMIC MEDICINE ng/mlMay indicate increased risk of acute coronary syndrome. >=1.5 ng/ml Consistent with acute myocardial infarction. The diagnostic value of a single normal or non-diagnostic result is questionable.Serial samples at 2-6 hour intervals are required to rule out acute myocardial injury. Specimen Plasma specimen Performing Organization Address [facility] [place] [address] PATHOLOGY AND [facility] MEDICINE * Partial thromboplastin time, activated (12/07/2017 12:49 AM CDT) PTT 32.4 23.0 - 36.0 sec [facility] DEPARTMENT OF Comment: PATHOLOGY AND PTT therapeutic range for [facility] MEDICINE unfractionated heparin is 61.0-112.0 seconds which corresponds to Anti-Xa 0.3-0.7 U/ml. Specimen Blood Performing Organization Address [facility]/[place] [address] PATHOLOGY AND [facility] MEDICINE * Thyroid stimulating hormone (12/07/2017 12:49 AM CDT) TSH 4.18 0.27 - 4.20 uIU/mL [facility] DEPARTMENT OF PATHOLOGY AND GENOMIC MEDICINE Specimen Plasma specimen Performing Organization Address City/[facility]/[place] [address] PATHOLOGY AND GENOMIC MEDICINE * T4, free (12/07/2017 12:49 AM CDT) T4, free 1.4 0.9 - 1.7 ng/dL [facility] DEPARTMENT OF PATHOLOGY AND GENOMIC MEDICINE Specimen Plasma specimen Performing Organization Address City/[facility]/[place] [address] PATHOLOGY AND GENOMIC MEDICINE * B natriuretic peptide (12/07/2017 12:49 AM CDT) BNP 52 0 - 100 pg/mL [facility] DEPARTMENT OF PATHOLOGY AND GENOMIC MEDICINE Specimen Blood Performing Organization Address [facility]/[place] [address] PATHOLOGY AND GENOMIC MEDICINE * Lipid panel (12/07/2017 12:49 AM CDT) Cholesterol 190 <200 mg/dL [facility] DEPARTMENT OF PATHOLOGY AND GENOMIC MEDICINE Triglycerides 257 (H) <150 mg/dL [facility] DEPARTMENT OF PATHOLOGY AND GENOMIC MEDICINE HDL cholesterol 39 (L) >40 mg/dL [facility] DEPARTMENT OF PATHOLOGY AND GENOMIC MEDICINE LDL cholesterol 119 (H)Comment: Result <100 mg/dL [facility] DEPARTMENT OF obtained by direct LDL PATHOLOGY AND measurement GENOMIC MEDICINE Lipid panel SeeBelow [facility] DEPARTMENT OF interpretation Comment: PATHOLOGY AND Total [...] mg/dL) Specimen Plasma specimen Performing Organization Address City/[facility]/Zipcode Phone Number [facility] DEPARTMENT OF [address] [place] [address] PATHOLOGY AND GENOMIC MEDICINE * CT Spine External Study (12/06/2017 1:42 PM CDT) Narrative Performed At This exam was not acquired at a [facility] facility and has not been [facility] interpreted by a [facility] Provider.The exam was imported into our imaging system for comparisons purposes. Performing Organization Address [facility] Phone Number [facility] [address] [place] [address] * XR Hip 2-3 View Left (12/02/2017 2:03 PM CDT) Narrative Performed At EXAMINATION:XR [facility] 2[facility]:pain post fall COMPARISON:None. TECHNIQUE: 3 [...] mild degenerative changes present consistent with osteoarthritis. [id number] Procedure Note Interface, Radiology Results Incoming - [...] mild degenerative changes present consistent with osteoarthritis. [id number] Performing Organization Address [facility]/Zipcode Phone Number [facility] [address] [place] [address] * XR Ribs W Pa Chest Left (12/02/2017 2:03 PM CDT) Narrative Performed At EXAMINATION:XR RIBS W PA CHEST LEFT [facility] CLINICAL HISTORY:paintrauma COMPARISON:None. IMPRESSION: 1.The bones are osteopenic. No rib fracture or focal osseous lesion is seen. Lumbar hardware is present. [facility]-[id number] Procedure Note Hm Interface, Radiology Results Incoming - 12/02/2017 2:15 PM CDT EXAMINATION: XR RIBS W PA CHEST LEFT CLINICAL HISTORY: pain trauma COMPARISON: None. IMPRESSION: 1. The bones are osteopenic. No rib fracture or focal osseous lesion is seen. Lumbar hardware is present. [facility]-[id number] Performing Organization Address City/State/Zipcode Phone Number [facility] [address] [place] [address] after 08/09/2017 Insurance Payer Benefit Subscriber ID Type Phone Address Plan / Group [facility] [employer] xxxxxxxxxxx [facility] ([place]) [place] [address] Advance Directives Patient has advance care planning documents on file. For more information, darby lopes contact: [employer] [address] [place] [address]
--- NOTE | 2018-08-10 13:04 | Diagnostic Imaging Report ---
Exam: KUB- 2 views. Comparison: CT Abdomen/Pelvis 07/14/18. Findings: Nonobstructive bowel gas pattern. There is a 9 mm and a 6 cm calcification which projects over the right lower pole kidney. There is a 3 mm and a 5 mm calcification which projects over the left mid/lower pole kidney. No definite stone is seen in the region of the left UVJ, which was present on CT from 07/14/2018. Interval ureteral intervention performed on 09/22/2017. Calcified phleboliths project over the pelvis. Partially seen vertebral augmentation and lower lumbar fusion changes. Status post cholecystectomy. No acute osseous abdomen. Impression: Bilateral renal stones, measuring up to 6 mm on the right and 5 mm on the left. No evidence of left ureteral stone, which was seen on CT from 07/14/18, with note made of subsequent intervention on 07/22/18. Signed by: Dr. Deepa Hawkins MD on 08/10/2018 1:01 PM
[2018-08-10 15:00] VITALS: BP 148/77
--- NOTE | 2018-08-12 09:10 | Operative Report ---
DATE OF PROCEDURE: August 10, 2018 PREOPERATIVE DIAGNOSIS: Right kidney stone. POSTOPERATIVE DIAGNOSIS: Right kidney stone. PROCEDURES 1. Right staged shock wave lithotripsy. 2. Supervision of fluoroscopy. ANESTHESIA: General. ESTIMATED BLOOD LOSS: Minimal. COMPLICATIONS: None. INDICATIONS: Ms. Mcdaniels is an 83-year-old female with a history of failure of trial of passage of symptomatic right-sided kidney stone. She and I had a long discussion about alternatives, risks and benefits, including doing nothing, shock wave lithotripsy, ureteroscopy, percutaneous surgery and open surgery. She voiced understanding of the options, alternatives, risks, and benefits and she elected to proceed. PROCEDURE IN DETAIL: After informed consent was obtained, the patient was taken to the operative suite, placed supine on the table, and underwent general anesthesia. A time out was taken. Site was confirmed. The stone was then localized in the X, Y and Z planes. Treatment was performed with lithotripter per the treatment report. The patient tolerated the procedure well, and was transported to the recovery room in excellent condition with no untoward events noted. SUPERVISION OF FLUOROSCOPY: I was present throughout the entire procedure and I supervised the use of fluoroscopy. There was no radiologist present at any time during this procedure. Dosage per the treatment report. Job#: [id number] [facility]
== END | disposition home or self-care (01) ==
LOC: OR 10:23
PROVIDERS: ATTEND Urology
DX: N20.0 Calculus of kidney (principal); N39.0 Urinary tract infection, site not specified; N20.1 Calculus of ureter; T19.1XXA Foreign body in bladder, initial encounter; M06.9 Rheumatoid arthritis, unspecified; E03.9 Hypothyroidism, unspecified; E11.9 Type 2 diabetes mellitus without complications; K21.9 Gastro-esophageal reflux disease without esophagitis; I10 Essential (primary) hypertension; D64.9 Anemia, unspecified; X58.XXXA Exposure to other specified factors, initial encounter; Z88.6 Allergy status to analgesic agent; Z88.1 Allergy status to other antibiotic agents; Z88.2 Allergy status to sulfonamides; Z79.84 Long term (current) use of oral hypoglycemic drugs; Z68.33 Body mass index [BMI] 33.0-33.9, adult
CPT/HCPCS: 36415; 50590; 74018; 82948; J0696; J1200; J2001; J2405; J2704; J2765

== ENCOUNTER → 2018-11-18 | Day surgery (SDC) | payer MEDICARE ==
[2018-11-16 15:20] LABS: BASOPHILS % 0.6 % (0.0-1.0); EOSINOPHILS # (AUTO) 0.3 (0.0-0.4); EOSINOPHILS % 3.7 % (0.0-6.0); HEMATOCRIT 37.5 % (34.2-44.1); HEMOGLOBIN 12.8 g/dL (12.0-16.0); LYMPHOCYTES # (AUTO) 2.8 (1.0-3.2); LYMPHOCYTES % 39.5 % (18.0-39.1); MEAN CORPUSCULAR HEMOGLOBIN 29.8 pg (28-32); MEAN CORPUSCULAR HGB CONC 34.1 g/dL (31-35); MEAN CORPUSCULAR VOLUME 87.2 fL (81-99); MONOCYTES # (AUTO) 0.8 (0.2-0.8); MONOCYTES % 11.3 % (4.4-11.3); NEUTROPHILS # (AUTO) 3.1 (2.1-6.9); NEUTROPHILS % 44.5 % (38.7-80.0); PLATELET COUNT 151 x10e3/uL (140-360); RED CELL DISTRIBUTION WIDTH 13.8 % (11.7-14.4)
--- NOTE | 2018-11-16 15:42 | Diagnostic Imaging Report ---
EXAMINATION: PA and lateral views of the chest. COMPARISON: 07/20/2018 CLINICAL HISTORY: Preoperative study for lithotripsy DISCUSSION: Lungs remain well-inflated. Coarse interstitial opacities in the lung bases are unchanged and likely reflect age-related fibrotic changes. No new consolidation, pleural effusion, or pneumothorax. Stable cardiomediastinal contour with atherosclerotic calcification of the thoracic aorta. No pulmonary edema. No acute osseous abnormality. Vertebroplasty cement is again noted within a lower thoracic or upper lumbar vertebral body. IMPRESSION: No acute cardiopulmonary abnormalities. Signed by: Dr. Nate Ochoa M.D. on 11/16/2018 3:39 PM
[~2018-11-18] MED LIST changes: +DEXAMETHASONE SOD PHOS INJ 4 MG/ML VIAL ONE; -DIPHENHYDRAMINE HCL INJ 50 MG/ML VIAL ONE; -METOCLOPRAMIDE HCL 10 MG/2ML VIAL ONE; +MULTI-VITAMIN1 EACH PO; -ONDANSETRON HCL INJ 2 MG/ML VIAL ONE; +ONDANSETRON HCL INJ 2MG/ML 2ML 2 MG/ML VIAL ONE; +TRAMADOL HCL 50 MG TAB ONE
--- OUTSIDE RECORDS SUMMARY | 2018-11-18 06:04 | XMS REPORT | Clinical Summary ---
Author Author [facility] Organization [facility] Address Unknown Phone Unavailable Care Team Providers Care Outside Cutter Name Role Phone Rony Gonzalez MD PCP [...] initial encounter 12/02/2017 Emergency Emergency Medicine after 11/17/2017 Social History Date Tobacco Use Types Packs/Day [...] Taken Vital Sign Reading 07/07/2018 2:57 AM [employer] Blood Pressure 146/63 07/07/2018 2:57 AM [employer] Pulse 89 07/06/2018 10:46 PM [employer] Temperature 36.9 C (98.4 F) 07/07/2018 2:57 AM [employer] Respiratory Rate 19 07/07/2018 2:57 AM [employer] Oxygen Saturation 98% - Inhaled Oxygen - Concentration 07/07/2018 2:57 AM [employer] Weight 91.6 kg (201 lb 15.1 oz) 07/07/2018 2:57 AM [employer] Height 165.1 cm (5' 5") 07/07/2018 2:57 AM [employer] Body Mass Index 33.6 Plan of Treatment Health Maintenance Due Date Last Done Comments DIABETIC RETINAL EYE EXAM 1934 DIABETIC FOOT EXAM 1944 URINE MICROALBUMIN 1944 SHINGLES VACCINES (#1) 1984 65+ PNEUMOCOCCAL VACCINE 1999 (1 of 2 - PCV13) PNEUMOCOCCAL 1999 POLYSACCHARIDE VACCINE AGE 65 AND OVER INFLUENZA VACCINE 03/09/2019 Implants Device Identifier Shelf Expiration Date Model / Serial / Lot Implanted Type Area Manufactur er 09/08/2019 [id number] / / [id number] Kit Cmnt Spinal Hiviscocty 11ml Spinal N/A: N/A DEPUY [employer] - [id number] Implants SPINE Implanted: 12/10/2017 (Quantity not on file) Procedures Comments Procedure Name Priority Date/Time Associated Diagnosis URINALYSIS SCREEN AND STAT 07/07/2018 MICROSCOPY, WITH REFLEX 2:18 AM [employer] TO CULTURE CT ABDOMEN PELVIS W STAT 07/07/2018 CONTRAST 2:08 AM [employer] ESTIMATED GFR STAT 07/06/2018 11:46 PM [employer] LIPASE LEVEL STAT 07/06/2018 11:46 PM [employer] COMPREHENSIVE METABOLIC STAT 07/06/2018 PANEL 11:46 PM [employer] HC COMPLETE BLD COUNT STAT 07/06/2018 W/AUTO DIFF 11:46 PM [employer] GRAM STAIN STAT 07/06/2018 10:48 PM [employer] URINE CULTURE STAT 07/06/2018 10:48 PM [employer] ZZESTIMATED GFR Routine 12/10/2017 4:20 AM CDT [...] STAT 12/02/2017 PANEL 12:45 PM CDT after 11/17/2017 Results * Urinalysis screen and microscopy, with reflex to culture (07/07/2018 2:18 AM [employer]) Specimen site Clean catch [facility] Color, UA Yellow [facility] Appearance, UA Clear [facility] Specific gravity, UA 1.035 1.001 - 1.035 [facility] pH, UA 5.0 5.0 - 8.5 [facility] Protein, UA 2+ (A) Negative [facility] Glucose, UA Negative Negative [facility] Ketones, UA Trace (A) Negative [facility] Bilirubin, UA Negative Negative [facility] Blood, UA Large (A) Negative [facility] Nitrite, UA Negative Negative [facility] Urobilinogen, UA <2.0 <2.0 [facility] Leukocyte esterase, UA Small (A) Negative [facility] Epithelial cells, UA 4 /HPF [facility] WBC, UA 2 0 - 4 /HPF [facility] RBC, UA 54 (H) 0 - 5 /HPF [facility] Bacteria, UA None seen None seen [facility] Yeast, UA None seen [facility] Yeast with pseudohyphae, None seen [facility] Specimen Urine Performing Organization Address City/State/Zipcode Phone Number [facility] DEPARTMENT OF [address] [place] [address] PATHOLOGY AND GENOMIC MEDICINE [facility] [address] [place] [address] [address] * CT Abdomen Pelvis W Contrast (07/07/2018 2:08 AM [employer]) Narrative Performed At CT ABDOMEN PELVIS W [...] edema, and absence of a delayed nephrogram. [facility]-[id number] Procedure Note [facility], Radiology Results Incoming - 07/07/2018 2:18 [address] C[employer]TER CT ABDOMEN PELVIS W CONTRAST CLINICAL INDICATION: [...] edema, and absence of a delayed nephrogram. [facility]-[id number] Performing Organization Address City/State/Zipcode Phone Number [facility] [address] [place] [address] * Estimated GFR (07/06/2018 11:46 PM [employer] C[employer]TER) Estimated GFR 55 (A) mL/min/1.73 m2 [facility] Comment: HOSPITAL CatergoryUnitsInte rpretation G1 >=90 Normal or high G2 60-89Mildly decreased [id number] Mildly to moderately decreased [id number] Moderately to severely decreased G4 15-29Severely decreased G5 <15Kidney failure The eGFR was calculated using the Chronic Kidney Disease Epidemiology Collaboration (CKD-EPI) equation. Interpretation is based on recommendations of the National Kidney Foundation-Kidney Disease Outcomes Quality Initiative (NKF-KDOQI) published in 2014. Specimen Plasma specimen Performing Organization Address City/State/Zipcode Phone Number [facility] DEPARTMENT OF [address] [place] [id number] PATHOLOGY AND GENOMIC MEDICINE [address] * CBC with platelet and differential (07/06/2018 11:46 PM [employer]) Only the most recent of 6 results within the time period is included. WBC 14.30 (H) 4.50 - 11.00 k/uL [facility] RBC 4.57 4.20 - 5.50 m/uL [facility] HGB 13.5 12.0 - 16.0 g/dL [facility] HCT 39.3 37.0 - 47.0 % [facility] MCV 86.0 82.0 - 100.0 fL [facility] MCH 29.5 27.0 - 34.0 pg [facility] MCHC 34.4 31.0 - 37.0 g/dL [facility] RDW - SD 42.1 37.0 - 55.0 fL [facility] MPV 10.8 8.8 - 13.2 fL [facility] Platelet count 202 150 - 400 k/uL [facility] Nucleated RBC 0.00 /100 WBC [facility] Neutrophils 69.6 (H) 39.0 - 69.0 % [facility] Lymphocytes 18.8 (L) 25.0 - 45.0 % [facility] Monocytes 10.0 0.0 - 10.0 % [facility] Eosinophils 0.6 0.0 - 5.0 % [facility] Basophils 0.4 0.0 - 1.0 % [facility] Immature granulocytes 0.6Comment: "Immature 0.0 - 1.0 % [facility] granulocytes" (promyelocytes, HOSPITAL myelocytes, metamyelocytes) Specimen Blood Performing Organization Address City/[facility]/Zipcode Phone Number [facility] DEPARTMENT OF [address] [place] [address] PATHOLOGY AND GENOMIC MEDICINE [address] * Lipase level (07/06/2018 11:46 PM [employer]TER) Lipase 10 (L) 13 - 60 U/L [facility] Specimen Plasma specimen Performing Organization Address City/[facility] Cent[facility] Phone Number [facility] DEPARTMENT OF [address] [place] [address] PATHOLOGY AND GENOMIC MEDICINE [address] * Comprehensive metabolic panel (07/06/2018 11:46 PM [employer]) Only the most recent of 3 results within the time period is included. Sodium 141 135 - 148 mEq/L [facility] Potassium 3.8 3.5 - 5.0 mEq/L [facility] Chloride 103 98 - 112 mEq/L [facility] CO2 21 (L) 24 - 31 mEq/L [facility] Anion gap 17@ANIO (H) 7 - 15 mEq/L [facility] BUN 13 8 - 23 mg/dL [facility] Creatinine 0.95 (H) 0.50 - 0.90 mg/dL [facility] Glucose 156 (H) 65 - 99 mg/dL [facility] Calcium 9.6 8.8 - 10.2 mg/dL [facility] Protein 7.8 6.3 - 8.3 g/dL [facility] Comment: HOSPITAL [place] 4.6-7.0 g/dL 1 week 4.4-7.6 g/dL 7 months-1year 5.1-7.3 g/dL 1-2 years5.6-7 .5 g/dL >3 years6.0-8 .0 g/dL 18-150 6.3-8.3 g/dL Albumin 3.9 3.5 - 5.0 g/dL [facility] A/G ratio 1.0 0.7 - 3.8 [facility] Alkaline phosphatase 79 35 - 104 U/L [facility] AST 33 10 - 35 U/L [facility] ALT 23 5 - 50 U/L [facility] Total bilirubin 0.9 0.0 - 1.2 mg/dL [facility] Specimen Plasma specimen Performing Organization Address City/[facility] Cent[facility]ode Phone Number [facility] DEPARTMENT OF [address] [place] [address] PATHOLOGY AND GENOMIC MEDICINE [address] * Gram stain (07/06/2018 10:48 PM [employer] C[employer]TER) Gram stain result Few WBC's [facility] Few Gram positive rods [facility] Comment: Specimen Information Specimen Source: Urine Specimen Site: Clean catch Specimen Urine Performing Organization Address City/[facility]/Zipcode Phone Number [facility] [place] [address] PATHOLOGY AND GENOMIC MEDICINE [address] * Urine culture (07/06/2018 10:48 PM AUTOM[employer]IC [employer]RIC C[employer]TER) Urine culture isolate Mixed asad 10-5 col/cc [facility] Comment: HOSPITAL Specimen Information Specimen Source: Urine Specimen Site: Clean catch Specimen Urine Performing Organization Address [facility] Centercode Phone Number [facility] [place] [address] PATHOLOGY AND GENOMIC MEDICINE [address] * Estimated GFR (12/10/2017 4:20 AM CDT) Only the most recent of 5 results within the time period is included. GFR Non Af Amer 60 mL/min/1.73 m2 [facility] DEPARTMENT OF PATHOLOGY AND GENOMIC MEDICINE GFR Af Amer 72 mL/min/1.73 m2 [facility] DEPARTMENT OF Comment: PATHOLOGY AND Chronic kidney [...] Americans. Specimen Plasma specimen Performing Organization Address [facility] Centercode Phone Number [facility] [place] [address] PATHOLOGY AND GENOMIC MEDICINE * Phosphorus level (12/10/2017 4:20 AM CDT) Only the most recent of 3 results within the time period is included. Phosphorus 2.8 2.4 - 4.5 mg/dL [facility] DEPARTMENT OF PATHOLOGY AND GENOMIC MEDICINE Specimen Plasma specimen Performing Organization Address City/[facility]/Zipcode Phone Number [facility] [place] [address] PATHOLOGY AND GENOMIC MEDICINE * Magnesium level (12/10/2017 4:20 AM CDT) Only the most recent of 3 results within the time period is included. Magnesium 1.9 1.6 - 2.4 mg/dL [facility] DEPARTMENT OF PATHOLOGY AND GENOMIC MEDICINE Specimen Plasma specimen Performing Organization Address City/[facility] [place] [address] PATHOLOGY AND GENOMIC MEDICINE * Hemoglobin A1c (12/10/2017 4:20 AM CDT) Hemoglobin A1C 5.6 4.0 - 5.6 % [facility] DEPARTMENT OF Comment: PATHOLOGY AND HbA1c cutoffs for diagnosing [facility] MEDICINE diabetes: 4.0% - 5.6%=normal 5.7% - 6.4%=increased risk for diabetes (prediabetes) >=6.5%=diabetes Goals for glycemic control (ADA 2016) < 7.0%Target for non adults with diabetes. More or less stringent targets may be appropriate for individual patients. <7.5% Target for Children and adolescents with type 1 diabetes. Specimen Blood Performing Organization Address [facility] [place] [place] [address] PATHOLOGY AND [facility] * Basic metabolic panel (12/10/2017 4:20 AM CDT) Only the most recent of 3 results within the time period is included. Sodium 139 135 - 148 mEq/L [facility] DEPARTMENT OF PATHOLOGY AND GENOMIC MEDICINE Potassium 4.3 3.5 - 5.0 mEq/L [facility] DEPARTMENT OF PATHOLOGY AND GENOMIC MEDICINE Chloride 102 98 - 112 mEq/L [facility] DEPARTMENT OF PATHOLOGY AND GENOMIC MEDICINE CO2 28 24 - 31 mEq/L [facility] DEPARTMENT OF PATHOLOGY AND GENOMIC MEDICINE Anion gap 9 7 - 15 mEq/L [facility] DEPARTMENT OF Comment: PATHOLOGY AND Starting from November [facility] MEDICINE , anion gap calculation no longer incorporates potassium. Please note the change. BUN 12 8 - 23 mg/dL [facility] DEPARTMENT OF PATHOLOGY AND GENOMIC MEDICINE Creatinine 0.9 0.5 - 0.9 mg/dL [facility] DEPARTMENT OF PATHOLOGY AND GENOMIC MEDICINE Glucose 187 (H) 65 - 99 mg/dL [facility] DEPARTMENT OF PATHOLOGY AND GENOMIC MEDICINE Calcium 8.5 (L) 8.8 - 10.2 mg/dL [facility] DEPARTMENT OF PATHOLOGY AND GENOMIC MEDICINE Specimen Plasma specimen Performing Organization Address City/[facility] Centercode Phone Number [address] [place] [address] PATHOLOGY AND GENOMIC MEDICINE * IR Vertebroplasty [...] was conducted with an anesthesiologist. Prophylactic intravenous [id number] mg ciprofloxacin was given. The thoracolumbar region [...] images. Total radiation exposure was 518 mGy. [facility]-[id number] Procedure Note [facility], Radiology Results Incoming - 12/09/2017 4:38 PM [...] images. Total radiation exposure was 518 mGy. [facility]-[id number] Performing Organization Address [facility] [place] [place] Phone Number [place] [phone] [place] [address] * Total iron binding capacity (12/09/2017 4:06 AM CDT) Iron level 32 (L) 37 - 145 ug/dL [facility] DEPARTMENT OF PATHOLOGY AND GENOMIC MEDICINE Iron binding capacity 232 200 - 400 ug/dL [facility] DEPARTMENT OF PATHOLOGY AND GENOMIC MEDICINE % Saturation 13.8 (L) 15.0 - 38.0 % [facility] DEPARTMENT OF PATHOLOGY AND GENOMIC MEDICINE Specimen Plasma specimen Performing Organization Address [facility] [place] [place] Phone Number [place] [phone] PATHOLOGY AND GENOMIC MEDICINE * Prothrombin time with INR (12/09/2017 4:06 AM CDT) Only the most recent of 2 results within the time period is included. Prothrombin time 13.9 12.0 - 15.0 sec [facility] DEPARTMENT OF PATHOLOGY AND GENOMIC MEDICINE INR 1.1 [facility] DEPARTMENT OF Comment: PATHOLOGY AND The International Normalized GENOMIC MEDICINE Ratio (INR) is a therapeutic monitoring tool for patients who are stable on oral anticoagulant therapy. An INR of 2.0-3.0 is suggested for deep vein thrombosis/pulmonary embolism. Specimen Blood Performing Organization Address [facility]/Zipcode Phone Number [facility] [place] [address] PATHOLOGY AND GENOMIC MEDICINE * Transferrin level (12/09/2017 4:06 AM CDT) Transferrin 206 200 - 360 mg/dL [facility] DEPARTMENT OF PATHOLOGY AND GENOMIC MEDICINE Specimen Plasma specimen Performing Organization Address City/[facility]/Zipcode Phone Number [facility] [place] [address] PATHOLOGY AND GENOMIC MEDICINE * Ferritin level (12/09/2017 4:06 AM CDT) Ferritin level 121 13 - 150 ng/mL [facility] DEPARTMENT OF PATHOLOGY AND GENOMIC MEDICINE Specimen Plasma specimen Performing Organization Address [facility] Cent[facility]ode Phone Number [facility] [place] [address] PATHOLOGY AND GENOMIC MEDICINE * Type and screen (12/09/2017 4:00 AM CDT) ABO grouping O [facility] DEPARTMENT OF PATHOLOGY AND GENOMIC MEDICINE Rh type POS [facility] DEPARTMENT OF PATHOLOGY AND GENOMIC MEDICINE Antibody screen (gel) NEG [facility] DEPARTMENT OF PATHOLOGY AND GENOMIC MEDICINE Specimen Blood Performing Organization Address [facility] [place] [place] Phone Number [facility] [place] [address] PATHOLOGY AND GENOMIC MEDICINE * XR Abdomen [...] are seen in the right upper quadrant. [facility]-[id number] Procedure Note Interface, Radiology Results Incoming - [...] are seen in the right upper quadrant. [facility]-[id number] Performing Organization Address City/[facility]/Zipcode Phone Number [facility] [address] [place] [address] * Vitamin D 25 hydroxy level (12/08/2017 4:00 AM CDT) Vitamin D, 25-hydroxy 21.7 (L) 30.0 - 150.0 ng/mL [facility] DEPARTMENT OF Comment: PATHOLOGY AND This assay [...] alternative methods. Specimen Blood Performing Organization Address [facility] Centercode Phone Number [facility] DEPARTMENT OF [address] [place] [address] PATHOLOGY AND GENOMIC MEDICINE * CT Thoracic [...] superior endplate without significant spinal canal narrowing. [facility]-[id number] Procedure Note [facility], Radiology Results Incoming - 12/07/2017 7:16 [...] superior endplate without significant spinal canal narrowing. [facility]-[id number] Performing Organization Address City/State/Zipcode Phone Number [facility] [address] [place] [address] * POC glucose (12/07/2017 7:58 AM CDT) POC glucose 124 (H) 65 - 99 mg/dL [facility] DEPARTMENT OF Comment: PATHOLOGY AND No Action Needed GENOMIC MEDICINE [facility] Notified RN Meter ID: [id number] Hand Cultivator: Mik Le Performing Organization Address City/State/[place] [address] PATHOLOGY AND GENOMIC MEDICINE * ECG 12 lead (12/07/2017 2:17 AM CDT) Ventricular rate 66 [facility] Atrial rate 66 [facility] MI interval 188 [facility] QRSD interval 82 [facility] QT interval 436 [facility] QTC interval 457 [facility] MUSE P axis 1 60 [facility] QRS axis 1 30 [facility] T wave axis 57 [facility] MUSE EKG impression Normal sinus rhythm-Possible [facility] MUSE Lateral infarct , age undetermined-Abnormal ECG-No previous ECGs available- Performing Organization Address [facility] [place], [place] [address] * Troponin (12/07/2017 12:49 AM CDT) Troponin <0.30 0.00 - 0.30 ng/mL [facility] DEPARTMENT OF Comment: PATHOLOGY AND 0.30 - 1.49 GENOMIC MEDICINE ng/mlMay indicate increased risk of acute coronary syndrome. >=1.5 ng/ml Consistent with acute myocardial infarction. The diagnostic value of a single normal or non-diagnostic result is questionable.Serial samples at 2-6 hour intervals are required to rule out acute myocardial injury. Specimen Plasma specimen Performing Organization Address [facility] [place] [place] [address] PATHOLOGY AND GENOMIC MEDICINE * Partial thromboplastin time, activated (12/07/2017 12:49 AM CDT) PTT 32.4 23.0 - 36.0 sec [facility] DEPARTMENT OF Comment: PATHOLOGY AND PTT therapeutic range for [facility] MEDIC[facility] unfractionated heparin is 61.0-112.0 seconds which corresponds to Anti-Xa 0.3-0.7 U/ml. Specimen Blood Performing Organization Address [facility] [place] [address] PATHOLOGY AND GENOMIC MEDICINE * Thyroid stimulating hormone (12/07/2017 12:49 AM CDT) TSH 4.18 0.27 - 4.20 uIU/mL [facility] DEPARTMENT OF PATHOLOGY AND GENOMIC MEDICINE Specimen Plasma specimen Performing Organization Address [facility]/Zipcode Phone Number [facility] DEPARTMENT OF [address] [place] [address] PATHOLOGY AND GENOMIC MEDICINE * T4, free (12/07/2017 12:49 AM CDT) T4, free 1.4 0.9 - 1.7 ng/dL [facility] DEPARTMENT OF PATHOLOGY AND GENOMIC MEDICINE Specimen Plasma specimen Performing Organization Address [facility] [place] [address] PATHOLOGY AND GENOMIC MEDICINE * B natriuretic peptide (12/07/2017 12:49 AM CDT) BNP 52 0 - 100 pg/mL [facility] DEPARTMENT OF PATHOLOGY AND GENOMIC MEDICINE Specimen Blood Performing Organization Address [facility] [place] [address] PATHOLOGY AND GENOMIC MEDICINE * Lipid panel (12/07/2017 12:49 AM CDT) Cholesterol 190 <200 mg/dL [facility] DEPARTMENT OF PATHOLOGY AND GENOMIC MEDICINE Triglycerides 257 (H) <150 mg/dL [facility] DEPARTMENT OF PATHOLOGY AND GENOMIC MEDICINE HDL cholesterol 39 (L) >40 mg/dL [facility] DEPARTMENT OF PATHOLOGY AND GENOMIC MEDICINE LDL cholesterol 119 (H)Comment: Result <100 mg/dL [facility] DEPARTMENT OF obtained by direct LDL PATHOLOGY AND measurement GENOMIC MEDICINE Lipid panel SeeBelow [facility] DEPARTMENT OF interpretation Comment: PATHOLOGY AND Total [...] mg/dL) Specimen Plasma specimen Performing Organization Address City/[facility] Centercode Phone Number [facility] DEPARTMENT OF [address] [place] [address] PATHOLOGY AND GENOMIC MEDICINE * CT Spine External Study (12/06/2017 1:42 PM CDT) Narrative Performed At This exam was not acquired at a [facility] facility and has not been [facility] interpreted by a [facility] Provider.The exam was imported into our imaging system for comparisons purposes. Performing Organization Address [facility] Centercode Phone Number [facility] [address] [place] [address] * XR Hip 2-3 View Left (12/02/2017 [...] mild degenerative changes present consistent with osteoarthritis. [id number] Procedure Note Interface, Radiology Results Incoming - [...] mild degenerative changes present consistent with osteoarthritis. [id number] Performing Organization Address City/[facility]/Zipcode Phone Number [facility] [address] [place] [address] * XR Ribs W Pa Chest Left (12/02/2017 2:03 PM CDT) Narrative Performed At EXAMINATION:XR RIBS W PA CHEST LEFT HM [facility] CLINICAL HISTORY:paintrauma COMPARISON:None. IMPRESSION: 1.The bones are osteopenic. No rib fracture or focal osseous lesion is seen. Lumbar hardware is present. [facility]-[id number] Procedure Note Hm Interface, Radiology Results Incoming - 12/02/2017 2:15 PM CDT EXAMINATION: XR RIBS W PA CHEST LEFT CLINICAL HISTORY: pain trauma COMPARISON: None. IMPRESSION: 1. The bones are osteopenic. No rib fracture or focal osseous lesion is seen. Lumbar hardware is present. [facility]-[id number] Performing Organization Address [facility] Phone Number [facility] [address] [place] [address] after 11/17/2017 Insurance Payer Benefit Subscriber ID Type Phone Address Plan / [facility] CIGNA xxxxxxxxxxx [facility] ([place]) [place] [address] Advance Directives Patient has advance care planning documents on file. For more information, darby lopes contact: [employer] [address] [place] [address]
--- NOTE | 2018-11-18 07:10 | NUR ---
SPIRITUAL CARE - Pre-Surgery Assessment: Pt in bed. Pt's daughter at bedside. Pt reported supportive attention from family and friends. Intervention: I provided pastoral presence, hospitality, sympathetic listening, and prayer. I acquainted pt with availability of animal care assistant while hospitalized. Outcome: Pt expressed appreciation for visit. No need for follow up indicated at this time. WILLI Perezlain Spiritual Care Department O: [phone] Pager: [phone] ([phone] number calling from)
[2018-11-18 09:00] VITALS: BP 127/61
--- NOTE | 2018-11-18 15:38 | Operative Report ---
DATE OF PROCEDURE: 11/18/2018 SURGEON: Anshul Ac MD PREOPERATIVE DIAGNOSIS: Left kidney stone. POSTOPERATIVE DIAGNOSIS: Left kidney stone. PROCEDURE: Staged shockwave lithotripsy left side. ANESTHESIA: General. ESTIMATED BLOOD LOSS: Minimal. COMPLICATIONS: None. INDICATIONS: Ms. Mcdaniels is a very pleasant 83-year-old female with a symptomatic left-sided kidney stone. She had a long discussion regarding the alternatives, risks, and benefits including doing nothing, shock wave lithotripsy, ureteroscopy, percutaneous surgery, or open surgery. She voiced understanding of the options, the alternatives, the risks and the benefits and she elected to proceed. PROCEDURE IN DETAIL: After informed consent was obtained, the patient was taken to the operative suite. She was placed supine on the operating table. She underwent general anesthesia by the Anesthesia Services. The stone was localized in the X, Y, and Z planes. Treatment was performed per the treatment report. The patient tolerated the procedure well. Good results were obtained. The patient was awakened from anesthesia and transferred to recovery room in excellent condition with no untoward effects noted. Anshul Ac MD ES/MODL /[id number] cc: Rony Gonzalez MD
== END | disposition home or self-care (01) ==
LOC: OR 06:02
PROVIDERS: ATTEND Urology
DX: N20.0 Calculus of kidney (principal); I10 Essential (primary) hypertension; E03.9 Hypothyroidism, unspecified; I44.0 Atrioventricular block, first degree; K21.9 Gastro-esophageal reflux disease without esophagitis; Z88.6 Allergy status to analgesic agent; Z88.1 Allergy status to other antibiotic agents; Z88.2 Allergy status to sulfonamides; Z01.810 Encounter for preprocedural cardiovascular examination; Z01.812 Encounter for preprocedural laboratory examination; Z01.818 Encounter for other preprocedural examination
CPT/HCPCS: 36415; 50590; 71046; 85025; 93005; J0696; J1100; J2001; J2405; J2704

== ENCOUNTER 2019-03-06 00:11 | Emergency (ER) | payer MEDICARE ==
[~2019-03-06] VITALS: Ht 165.1 cm; Wt 96.2 kg
[~2019-03-06 00:11] MED LIST changes: -CEFTRIAXONE SOD 1 GM/NS 50 ML 50 ML IV ONE; -DEXAMETHASONE SOD PHOS INJ 4 MG/ML VIAL ONE; -LIDOCAINE HCL 2% LOCAL INJ 5 ML SDV VIAL INJ ONE; -ONDANSETRON HCL INJ 2MG/ML 2ML 2 MG/ML VIAL ONE; -PROPOFOL IV EMULSION 10 MG/ML 20 ML VIAL ONE; -SEVOFLURANE INHAL SOLN 250 ML PEN BTL ONE; -TRAMADOL HCL 50 MG TAB ONE
[2019-03-06] MEDS ORDERED: ONDANSETRON HCL INJ 2MG/ML 2ML 2 MG/ML VIAL IV STA (00:12)
--- OUTSIDE RECORDS SUMMARY | 2019-03-06 00:14 | XMS REPORT | Clinical Summary ---
Author Author [facility] Organization [facility] Address Unknown Phone Unavailable Care Team Providers Care Dispatcher Tow Truck Name Role Phone Rony Gonzalez MD PCP [...] (eight) hours as needed for moderate pain. 08/06/2018 ibuprofen (ADVIL,MOTRIN) Take 1 tablet 30 [...] type 07/06/2018 Emergency Emergency Medicine - 07/07/2018 after 03/05/2018 Social History Date Tobacco Use Types Packs/Day [...] Taken Vital Sign Reading 07/07/2018 2:57 AM SEMICONDUCTOR ENGINEER Blood Pressure 146/63 07/07/2018 2:57 AM SEMICONDUCTOR ENGINEER Pulse 89 07/06/2018 10:46 PM SEMICONDUCTOR ENGINEER Temperature 36.9 C (98.4 F) 07/07/2018 2:57 AM SEMICONDUCTOR ENGINEER Respiratory Rate 19 07/07/2018 2:57 AM SEMICONDUCTOR ENGINEER Oxygen Saturation 98% - Inhaled Oxygen - Concentration 07/07/2018 2:57 AM SEMICONDUCTOR ENGINEER Weight 91.6 kg (201 lb 15.1 oz) 07/07/2018 2:57 AM SEMICONDUCTOR ENGINEER Height 165.1 cm (5' 5") 07/07/2018 2:57 AM SEMICONDUCTOR ENGINEER Body Mass Index 33.6 Plan of Treatment Health Maintenance Due Date Last Done Comments DIABETIC RETINAL EYE EXAM 1934 DIABETIC FOOT EXAM 1944 URINE MICROALBUMIN 1944 SHINGLES VACCINES (#1) 1984 65+ PNEUMOCOCCAL VACCINE 1999 (1 of 2 - PCV13) INFLUENZA VACCINE 03/09/2019 Implants Device Identifier Shelf Expiration Date Model / Serial / Lot Implanted Type Area Manufactur er 09/08/2019 [id number] / / [id number] Kit Cmnt Spinal Hiviscocty 11ml Spinal N/A: N/A DEPUY [employer] Plus - [id number] Implants SPINE Implanted: 12/10/2017 (Quantity not on file) Procedures Comments Procedure Name Priority Date/Time Associated Diagnosis URINALYSIS SCREEN AND STAT 07/07/2018 MICROSCOPY, WITH REFLEX 2:18 AM SEMICONDUCTOR ENGINEER TO CULTURE CT ABDOMEN PELVIS W STAT 07/07/2018 CONTRAST 2:08 AM SEMICONDUCTOR ENGINEER ESTIMATED GFR STAT 07/06/2018 11:46 PM SEMICONDUCTOR ENGINEER LIPASE LEVEL STAT 07/06/2018 11:46 PM SEMICONDUCTOR ENGINEER COMPREHENSIVE METABOLIC STAT 07/06/2018 PANEL 11:46 PM SEMICONDUCTOR ENGINEER HC COMPLETE BLD COUNT STAT 07/06/2018 W/AUTO DIFF 11:46 PM SEMICONDUCTOR ENGINEER GRAM STAIN STAT 07/06/2018 10:48 PM SEMICONDUCTOR ENGINEER URINE CULTURE STAT 07/06/2018 10:48 PM SEMICONDUCTOR ENGINEER after 03/05/2018 Results * Urinalysis screen and microscopy, with reflex to culture (07/07/2018 2:18 AM SEMICONDUCTOR ENGINEER) Specimen site Clean catch [facility] Color, UA Yellow [facility] Appearance, UA Clear [facility] Specific 1.035 1.001 - 1.035 [facility] gravity, [facility] pH, UA 5.0 5.0 - 8.5 [facility] Protein, UA 2+ (A) Negative [facility] Glucose, UA Negative Negative [facility] Ketones, UA Trace (A) Negative [facility] Bilirubin, UA Negative Negative [facility] Blood, UA Large (A) Negative [facility] Nitrite, UA Negative Negative [facility] Urobilinogen, <2.0 <2.0 [facility] Leukocyte Small (A) Negative [facility] Epithelial 4 /HPF [facility] cells, [facility] WBC, UA 2 0 - 4 /HPF [facility] RBC, UA 54 (H) 0 - 5 /HPF [facility] Bacteria, UA None seen None seen [facility] Yeast, UA None seen [facility] Yeast with None seen [facility] Specimen Urine Performing Organization Address City/State/Zipcode Phone Number [facility] DEPARTMENT OF [address] [place] [address] PATHOLOGY AND GENOMIC MEDICINE [address] * CT Abdomen Pelvis W Contrast (07/07/2018 2:08 AM SEMICONDUCTOR ENGINEER) Specimen Narrative Performed At CT ABDOMEN PELVIS W [...] edema, and absence of a delayed nephrogram. [facility]-[id number] Procedure Note Interface, Radiology Results Incoming - 07/07/2018 2:[address] ABDOMEN PELVIS W CONTRAST CLINICAL INDICATION: [...] edema, and absence of a delayed nephrogram. [facility]-[id number] Performing Organization Address City/[facility]/[place] [address] * Estimated GFR (07/06/2018 11:46 PM SEMICONDUCTOR ENGINEER) Pathologist [facility] Estimated GFR 55 (A) mL/min/1.73 m2 [facility] Comment: [facility] rpretation G1 >=90 Normal or high G2 60-89Mildly decreased [id number] Mildly to moderately decreased L1h41-60 Moderately to severely decreased G4 15-29Severely decreased G5 <15Kidney failure The eGFR was calculated using the Chronic Kidney Disease Epidemiology Collaboration (CKD-EPI) equation. Interpretation is based on recommendations of the National Kidney Foundation-Kidney Disease Outcomes Quality Initiative (NKF-KDOQI) published in 2014. Specimen Plasma specimen Performing Organization Address City/[facility]/Zipcode Phone Number [facility] [place] [address] PATHOLOGY AND GENOMIC MEDICINE [address] * CBC with platelet and differential (07/06/2018 11:46 PM SEMICONDUCTOR ENGINEER) Pathologist [facility] WBC 14.30 (H) 4.50 - 11.00 k/uL [...] 1.0 % [facility] Immature 0.6Comment: "Immature 0.0 - 1.0 % [facility] granulocytes granulocytes" (promyelocytes, [facility] myelocytes, metamyelocytes) HOSPITAL Specimen Blood Performing Organization Address City/[facility] Phone Number [facility] [place] [address] PATHOLOGY AND [facility] MEDICINE [address] * Lipase level (07/06/2018 11:46 PM SEMICONDUCTOR ENGINEER) [facility] Lipase 10 (L) 13 - 60 U/L [facility] Specimen Plasma specimen Performing Organization Address City/[facility] Phone Number [facility] [place] [address] PATHOLOGY AND GENOMIC MEDICINE [address] * Comprehensive metabolic panel (07/06/2018 11:46 PM SEMICONDUCTOR ENGINEER) [facility] Sodium 141 135 - 148 mEq/L [facility] Protein 7.8 6.3 - 8.3 g/dL [facility] Comment: [facility] 4.6-7.0 g/dL 1 week 4.4-7.6 g/dL 7 months-1year 5.1-7.3 g/dL 1-2 years5.6-7 .5 g/dL >3 years6.0-8 .0 g/dL 18-150 6.3-8.3 g/dL Albumin 3.9 3.5 - 5.0 g/dL [facility] A/G ratio 1.0 0.7 - 3.8 [facility] Alkaline 79 35 - 104 U/L [facility] phosphatase [facility] AST 33 10 - 35 U/L [facility] ALT 23 5 - 50 U/L [facility] Total bilirubin 0.9 0.0 - 1.2 mg/dL [facility] Specimen Plasma specimen Performing Organization Address City/[facility] Phone Number [facility] [place] [address] PATHOLOGY AND GENOMIC MEDICINE [address] * Gram stain (07/06/2018 10:48 PM SEMICONDUCTOR ENGINEER) Gram stain Few WBC's [facility] result Few Gram positive rods [facility] Comment: HOSPITAL Specimen Information Specimen Source: Urine Specimen Site: Clean catch Specimen Urine Performing Organization Address City/[facility] Phone Number [facility] DEPARTMENT OF [address] [place] [address] PATHOLOGY AND GENOMIC MEDICINE [address] * Urine culture (07/06/2018 10:48 PM SEMICONDUCTOR ENGINEER) Urine culture Mixed asad 10-5 col/cc [facility] isolate Comment: [facility] Specimen Information HOSPITAL Specimen Source: Urine Specimen Site: Clean catch Specimen Urine Performing Organization Address [facility] Phone Number [facility] DEPARTMENT OF [address] [place] [address] PATHOLOGY [place] [address] HOSPITAL after 03/05/2018 Insurance Type Payer Benefit Subscriber ID Effective Phone Address Plan / Dates Group HMO CIG[employer] CIGNA xxxxxxxxxxx 2017- [facility] [place] ) [place] [address] Advance Directives Patient has advance care planning documents on file. For more information, darby e contact: [employer] [address] [place] [address]
[2019-03-06] MEDS ORDERED: MECLIZINE HCL 12.5 MG TAB PO ONE (00:15)
[2019-03-06] MEDS ORDERED: LORAZEPAM INJ 2 MG/ML VIAL IV ONE (00:15)
[2019-03-06 00:38] LABS: BASOPHILS # (AUTO) 0.1 (0.0-0.1); BASOPHILS % 0.4 % (0.0-1.0); EOSINOPHILS # (AUTO) 0.2 (0.0-0.4); EOSINOPHILS % 1.2 % (0.0-6.0); HEMATOCRIT 39.2 % (34.2-44.1); HEMOGLOBIN 13.3 g/dL (12.0-16.0); LYMPHOCYTES # (AUTO) 2.4 (1.0-3.2); LYMPHOCYTES % 17.2 % (18.0-39.1); MEAN CORPUSCULAR HEMOGLOBIN 29.4 pg (28-32); MEAN CORPUSCULAR HGB CONC 33.9 g/dL (31-35); MEAN CORPUSCULAR VOLUME 86.5 fL (81-99); MONOCYTES # (AUTO) 0.9 (0.2-0.8); MONOCYTES % 6.2 % (4.4-11.3); NEUTROPHILS # (AUTO) 10.4 (2.1-6.9); NEUTROPHILS % 74.4 % (38.7-80.0); PLATELET COUNT 182 x10e3/uL (140-360); RED BLOOD COUNT 4.53 x10e6/uL (3.6-5.1); RED CELL DISTRIBUTION WIDTH 13.4 % (11.7-14.4)
--- NOTE | 2019-03-06 00:44 | NUR ---
PT STATES UNABLE TO URINATE AT THIS TIME, REFUSES STRAIGHT CATH ORDERED BY ER , ER AWARE
[2019-03-06] MEDS ORDERED: SODIUM CHLORIDE 0.9% 1000ML 1,000 ML IV ONE (00:45)
[2019-03-06 00:56] LABS: ALANINE AMINOTRANSFERASE 22 IU/L (0-55); ALBUMIN/GLOBULIN RATIO 1.1 (0.8-2.0); ALKALINE PHOSPHATASE 71 IU/L (40-150); ANION GAP 21.9 mmol/L (8-16); BLOOD UREA NITROGEN 16 mg/dL (7-26); BUN/CREATININE RATIO 18 (6-25); CARBON DIOXIDE 20 mmol/L (22-29); CHLORIDE 103 mmol/L (98-107); CREATINE KINASE 43 IU/L (29-168); CREATININE, SERUM 0.87 mg/dL (0.57-1.11); EST GLOMERULAR FILTRATION RATE > 60 ML/MIN (60-); GLUCOSE 190 mg/dL (74-118); POTASSIUM 3.9 mmol/L (3.5-5.1); SODIUM 141 mmol/L (136-145)
[2019-03-06 01:09] LABS: CALCIUM 10.1 mg/dL (8.4-10.2)
--- NOTE | 2019-03-06 01:19 | Diagnostic Imaging Report ---
History:Dizziness Comparison studies: None Technique: Axial images were obtained from the skull base to the vertex. Coronal and sagittal images reconstructed from the axial data. Dose modulation, iterative reconstruction, and/or weight based adjustment of the mA/kV was utilized to reduce the radiation dose to as low as reasonably achievable. Intravenous contrast: None Findings: Scalp/skull: No abnormalities. Extra-axial spaces: No masses. No fluid collections. Brain sulci: Moderately prominent. Ventricles: Moderate compensatory dilatation. No hydrocephalus. Parenchyma: Ill-defined, confluent hypodensities in the supratentorial white matter are small vessel ischemic changes. No masses, hemorrhage, acute or chronic cortical vascular insults. Sellar/suprasellar region: No abnormalities. Craniocervical junction: Patent foramen magnum. No Chiari one malformation. Incidental findings: Atherosclerotic calcifications in the carotid siphons . Impression: No acute abnormalities. Chronic findings: 1. Moderate generalized volume loss. 2. Moderate supratentorial white matter small vessel ischemic changes. Signed by: Dr. Gavin Jose M.D. on 03/06/2019 1:14 AM
--- NOTE | 2019-03-06 01:42 | NUR ---
PT REPORTS DECREASED NAUSEA AT THIS TIME, PT DENIES NEED TO URINATE AT THIS TIME AND REFUSES STRAIGHT CATH ORDERED BY ER MD ALETA AWARE
--- NOTE | 2019-03-06 02:14 | NUR ---
URINE SAMPLE OBTAINED AND SENT TO LAB FOR ANALYSIS PER MD ORDERS
[2019-03-06 02:35] LABS: BILIRUBIN,URINE NEGATIVE (NEGATIVE); CLARITY,URINE SL CLOUDY (CLEAR); COLOR,URINE YELLOW (YELLOW); KETONES,URINE 1+ (NEGATIVE); LEUKOCYTE ESTERASE ,URINE NEGATIVE (NEGATIVE); NITRITE,URINE NEGATIVE (NEGATIVE); PROTEIN,URINE DIPSTICK NEGATIVE (NEGATIVE); URINE UROBILINOGEN 0.2 mg/dL (0.2 - 1)
[2019-03-06 02:43] LABS: BACTERIA,URINE MODERATE /HPF; EPITHELIAL CELLS,URINE FEW /LPF; TRANSITIONAL EPI CELLS,URINE MANY
== END 2019-03-06 03:05 | disposition home or self-care (01) ==
LOC: ER 00:11
DX: R42 Dizziness and giddiness (principal); R11.2 Nausea with vomiting, unspecified; H81.12 Benign paroxysmal vertigo, left ear; N30.91 Cystitis, unspecified with hematuria; I10 Essential (primary) hypertension; E03.9 Hypothyroidism, unspecified; M54.9 Dorsalgia, unspecified; G89.29 Other chronic pain
CPT/HCPCS: 36415; 70450; 80053; 81001; 82550; 82553; 84484; 85025; 93005; 96374; 99284; J2060; J2405; J8597